=== PATIENT | male | born 1965 | race Caucasian/White ===

== ENCOUNTER 2021-11-24 09:58 | Outpatient (CLI) | payer OTHER, SELFPAY ==
--- OUTSIDE RECORDS SUMMARY | 2021-11-24 10:05 | XMS_ITS | Clinical Summary ---
:1965 Author Organization [employer] [facility] [facility] [place] [address] Care Team Providers Name Role Phone Marcel Hammonds MD Primary Care Provider Allergies No known active allergies Medications No known medications Active Problems Problem Noted Date Tinnitus 10/13/2015 Sensorineural hearing loss, bilateral 10/13/2015 Displacement of lumbar intervertebral disc without mye lopathy 03/13/2007 Degeneration of lumbar or lumbosacral intervertebral d isc 03/13/2007 VIRAL HEPATITIS C CHRONIC Overview: treatment completed, virus cleared Resolved Problems Problem Noted Date Resolved Date Weight loss 01/27/2013 03/03/2014 Encounters Date Type Specialty Care Team Description 11/24/2021 Office Visit Sean Palafox MD Consult from Last 3 Months Immunizations Name Administration Dates Next Due Influenza A (H1N1), Inactivated (Age 0103/28/2009 >=3 Years) Influenza, IIV3 (Age >=3 years) 01/26/2015, 01/27/2014, 03/2012, 12/24/2008 Tdap 05/24/2018, 05/15/2012 Tuberculin (PPD) 02/23/2013 Family History Medical History Relation Name Comments Heart Disease Brother 2 Alex valv replacement Arthritis Father Cancer-prostate Father and bladder Hypertension Father Arthritis Mother Heart Disease Mother CHF Hypertension Mother Stroke Mother Relation Name Status Comments Brother 1 Alive Brother 2 Alex Father Alive Maternal Grandfather Maternal Grandmother Mother (Age 71) Paternal Grandfather Paternal Grandmother Sister Alive Social History Tobacco Use Types Packs/Day Years Used Date Former Smoker Quit: 11/28/19 04 Smokeless Tobacco: Never Used Tobacco Cessation: Counseling Given: Yes Alcohol Use Standard Drinks/Week Comments No 0 (1 standard drink = 0.6 oz pure alcoho l) Sex Assigned at Date Recorded Not on file Obstetrics History Last Filed Vital Signs Vital Sign Reading Time Taken Comments Blood Pressure 100/58 11/24/2021 10:00 AM CDT Pulse 56 11/24/2021 10:00 AM CDT Temperature 36.4 ??C (97.6 ??F) 01/16/2021 11:10 AM CDT Respiratory Rate 14 11/24/2021 10:00 AM CDT Oxygen Saturation 96% 01/16/2021 11:10 AM CDT Inhaled Oxygen Concentration - - Weight 85.5 kg (188 lb 6.4 oz) 07/06/2020 1:51 PM CDT Height 190.5 cm (6' 3) 11/24/2021 10:00 AM CDT Body Mass Index 23.55 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 Plan of Treatment Health Maintenance Due Date Last Done Comments Zoster (shingles) series for age 0508/11/2014 50+ (1 of 2) BMI (ht and wt on same day) for 09/06/2016 09/07/2015 age 18+ Depression screening for age 12+ 09/06/2016 09/07/2015 Fecal testing non-DNA 02/28/2017 02/29/2016, 01/16/2015 (FIT,FOBT,iFOBT) for age 45-75 Lipids for age 45-75 09/06/2020 09/07/2015, 05/15/2012, 04/25/2006 Influenza for age 50-64 11/23/2021 01/26/2015, 01/27/2014, 11/23/2012, Additional history exists COVID-19 vaccine series (4 - 02/23/2022 10/24/2021, 021, Booster for Pfizer series) 06/11/2020 Tetanus booster 05/24/2028 05/24/2018, 05/15/2012 Hepatitis C screening for age Completed 10/18/2015, 2012, 18-79 01/27/2013, Additional history exists Tdap Completed 05/24/2018, 05/15/2012 Results Not on filefrom Last 3 Months Insurance Payer Benefit Plan / Subscriber ID Effective Dates Phone Addre ss Type Group WC WORKERS COMP WC WESTERN [id number] 2005-Presen C/O [place] [employer] [address] [place] [address] WC WORKERS COMP WC WESTERN [id number] 2004-Presen C/O [place] [employer] [address] [place] [address] WC WORKERS COMP WC WESTERN [id number] 2004-Prese C/O M [employer]LL [employer] [address] [place] [address] [employer] [place] [id number] 2010-Presen [address] [place] [address] [employer] [id number] 2018-Present [address] [place] [address] [phone] [address] (Home) COURT [phone] [place] [address] (Work) [id number] Derek Parikh Personal/Famil Self 1965 [phone] [address] (Home) COURT [place] [id number] Derek Parikh Workers Comp Self 1965 [phone] (Home) [place] [phone] 1 (Work) Derek Parikh Workers Comp Self 1965 [phone] (Home) [place] [phone] Derek Parikh Workers Comp Self 1965 [phone] [address] (Home) [address] [place] [address] [facility] Occ Employer 03/25/1900 [phone] ATTN CR [employer] [facility] (Home) [address] [phone] [facility] [address] (Work) [place] [address] Care Teams Ed Educational Aide Relationship Specialty Start Date End Date Marcel Hammonds MD PCP - General Family Practice 05/23/211999 [place] [address]
[2021-11-24 11:43] LABS: Creatinine* 0.9 mg/dL (0.5-1.5); Estimated Glomerular Filt Rate 100 ml/min
== END 2021-11-24 09:59 | disposition home or self-care (01) ==
LOC: NFLDREF 10:04
PROVIDERS: PCP Family Medicine; Visit Provider Internal Medicine Cardiovascular Disease
DX: I77.810 Thoracic aortic ectasia (principal)
CPT/HCPCS: 82565

== ENCOUNTER 2021-12-01 08:39 | Outpatient (CLI) | payer OTHER, SELFPAY ==
--- OUTSIDE RECORDS SUMMARY | 2021-12-01 08:46 | XMS_ITS | Clinical Summary ---
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 Health Maintenance Due Date [...] Type Group WC WORKERS COMP WC WESTERN [id number] 2005-Presen C/O M ITCHELL [employer] [address] [place] [address] WC WORKERS COMP WC WESTERN [id number] 2004-Presen C/O [place] [employer]ENCE [employer] [address] [place] [address] WC WORKERS COMP WC WESTERN [id number] 2004-Prese C/O M ITCHELL [employer] [address] [place] [address] [employer] [id number] 2010-Presen [address] [place] [address] [employer] [id number] 2018-Present [address] [place] [address] [phone] [address] (Home) COURT [phone] [place] [address] (Work) [phone] Derek Parikh Personal/Famil Self 1965 [phone] [address] (Home) COURT [place] [id number] Derek Parikh Workers Comp Self 1965 [phone] (Home) [place] [phone] 1 (Work) Derek Parikh Workers Comp Self 1965 [phone] (Home) [place] [address] Derek Parikh Workers Comp Self 1965 [phone] [address] (Home) [address] [place] [address] [facility] Occ Employer 03/25/1900 [phone] ATTN [employer] Health/Alex 7 (Home) [address] [phone] [facility] [address] (Work) [place] [address] Care Teams Medical Professionals Relationship Specialty Start Date End Date Marcel Hammonds MD PCP - General Family Practice 05/23/211999 [place] [address]
--- NOTE | 2021-12-01 09:00 | CRLHL7_ITS ---
For Patients: As a result of the Century Cures Act, medical imaging exams and procedure reports are released immediately into your electronic medical record. You may view this report before your referring provider. If you have questions, please contact your health care provider. Indication: Enlarged aortic root Technique: Post contrast CT chest. 75 cc Isovue 370 intravenous contrast. Please note that all CT scans at this facility use dose modulation, iterative reconstruction, and/or weight-based dosing when appropriate to reduce radiation dose to as low as reasonably achievable. Comparison: None Findings: Ascending aorta measures 4.0 x 3.8 cm. No dissection is present. Mild atherosclerotic disease. Upper abdomen normal. Normal pulmonary artery. No pulmonary embolism. No adenopathy. Chronic left posterior rib fracture deformities at the inferior hemithorax. No acute fracture. Degenerative changes thoracic spine. Impression: The ascending aorta measures 4.0 x 3.8 cm. Please note that all CT scans at this facility use dose modulation, iterative reconstruction, and/or weight-based dosing when appropriate to reduce radiation dose to as low as reasonably achievable. Dictated by Sean Louie MD @ 12/01/2021 1:33:38 PM (Electronically Signed)
== END 2021-12-01 08:40 | disposition home or self-care (01) ==
LOC: CT 08:39
PROVIDERS: PCP Family Medicine; Visit Provider Internal Medicine Cardiovascular Disease
DX: I77.810 Thoracic aortic ectasia (principal)
CPT/HCPCS: 71260; Q9967

== ENCOUNTER 2022-11-28 11:14 | Outpatient (CLI) | payer OTHER, SELFPAY | END 2022-11-28 11:15 | disposition home or self-care (01) | LOC: NFLDREF 11-30 06:41 | PROVIDERS: PCP Family Medicine; Referring Provider Family Medicine; Visit Provider Family Medicine | DX: Z00.00 Encounter for general adult medical examination without abnormal findings (principal); E78.5 Hyperlipidemia, unspecified; R73.03 Prediabetes; Z12.5 Encounter for screening for malignant neoplasm of prostate | CPT/HCPCS: 80053; 80061; 84153 ==

== ENCOUNTER 2023-10-13 09:11 | Emergency (ER) | payer OTHER, SELFPAY ==
[2023-10-13 09:14] VITALS: BP 138/86; PULSE 64; RESP 16; TEMP 36.2; O2SAT 97; BMI 23.7
[2023-10-13 09:28] LABS: Appearance Urine Slightly Cloudy (Clear); Bilirubin Urine Negative (Negative); Blood Urine 3+ (Negative); Color Urine Amber (Yellow); Glucose Urine Negative (Negative); Ketones Urine Negative (Negative); Leukocyte Esterase Urine Negative (Negative); Nitrite Urine Negative (Negative); Protein Urine 1+ (Negative); Specific Gravity Urine 1.015 (1.000-1.030); Urobilinogen Urine 0.2 (0.2-1.0); pH Urine 6.5 (5.0-8.5)
--- NOTE | 2023-10-13 09:33 | ED.MALEGU ---
HPI - Male Genitourinary General Date Seen: 10/13/23 Chief complaint: Urogenital Problems, Male Stated complaint: blood in urine Time Seen by Provider: 10/13/23 09:20 Source: patient, family and RN notes reviewed Mode of arrival: ambulatory Limitations: no limitations History of Present Illness HPI Narrative: Derek is a very pleasant 58-year-old gentleman with history of aortic root dilatation benign positional vertigo who comes to the emergency room for evaluation of hematuria. Patient notes that he started experiencing blood in his urine today. He is describing this as clots. He really does not have any other symptoms to include nausea or fever. He does note that his abdominal muscles feel as if he has been doing sit-ups but does not describe any discrete pain. This has not happened to him in the past. Denies a history of urinary tract infection, difficulty urinating. He is not currently on any blood thinners. He is not feeling lightheaded. No other symptoms. 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 He notes that he was throwing some luggage but does not remember a moment where he felt pain. Denies any trauma. Related Data Home Medications ?Medication ?Instructions ?Recorded ?Confirmed No Known Home Medications 10/13/23 10/13/23 Allergies Allergy/AdvReac Type Severity Reaction Status Date / Time No Known Allergies Allergy Unknown Verified 10/13/23 10:57 Review of Systems Status of ROS: Reports: 10 or more systems reviewed and unremarkable except as noted in History and below Const: Denies: fever or chills Cardio: Denies: swelling of feet/ankles, lightheadedness or shortness of breath with exertion Resp: Denies: shortness of breath GI: Denies: abdominal pain, nausea or vomiting : Reports: blood in urine; Denies: painful urination, urinary frequency or urinary urgency Musculo: Denies: back pain [facility] Medical History History of hepatitis C virus infection ?Z86.19 - Personal history of other infectious and parasitic diseases (ICD-10) Surgical History Status post myringotomy with tube placement of both ears ?Z96.22 - Myringotomy tube(s) status (ICD-10) History of tonsillectomy ?Z90.89 - Acquired absence of other organs (ICD-10) History of hand surgery ?Z98.890 - Other specified postprocedural states (ICD-10) History of adenoidectomy ?Z90.89 - Acquired absence of other organs (ICD-10) Social History What is your current living situation?: unable to answer Problems where you live: unable to answer In the past 12 months, utilities in danger of being shut off: no In past 12 months, lack of transportation kept you from medical appts, meetings, work, or getting things needed for daily living: no In the past 12 mos, have been you worried that your food would run out before you had money to buy more?: never true In the past 12 mos, the food you bought just didn't last and you didn't have money to buy more?: never true Smoking Status: Former smoker How often do you have a drink containing alcohol: never How often do you have six or more drinks on one occasion: Never AUDIT-C Alcohol total score: 0 Non-prescribed substance use: denies use How often does anyone, including family, friends and others, physically hurt you: never How often does anyone, including family, friends and others, insult or talk down to you: never How often does anyone, including family, friends and others, threaten you with harm: never How often does anyone, including family, friends and others, scream or curse at you: never Little interest or pleasure in doing things: not at all Feeling down, depressed, or hopeless: not at all Exam Narrative: Exam Narrative: Derek is alert and oriented. Normal color and appearance. Does have hearing impairment but we are able to converse without difficulty. EOM is full in face is symmetrical. Heart with regular rate and rhythm and lungs are clear. Abdomen is soft nontender. No CVA tenderness with percussion. Moving all extremities. Const: Vital Signs, click to edit/add: Vital Signs - 24 hr 10/13/23 09:14 10/13/23 11:35 Temperature 97.2 F L Pulse Rate [Pulse Oximeter] 64 50 L Respiratory Rate 16 16 Blood Pressure [Ri ght Upper Arm] 138/86 139/80 Pulse Oximetry 97 98 Oxygen Delivery Me thod Room Air Room Air Documenting provider has reviewed patient's vital signs: yes Course Course ED Course: Differential diagnosis includes but is not limited to urinary tract infection, pyelonephritis, kidney stone, urinary system lesion. Will schedule bladder scan after collection of urinalysis. Will check labs to include CBC, basic panel INR. Reevaluation(s) Reevaluation #1: Patient is informed that he does have a bladder mass. This is most likely carcinoma. Fortunately CT does not show any other signs of metastases. Attempting to her contact urologist at this time. Consultations Consultation #1: I had the pleasure of speaking with from [facility] at [place]. At this time he does request that the patient call the office for expedited appointment and tumor removal. Vital Signs Vital signs: Initial Vital Signs Temperature 97.2 F L 10/13/23 09:14 Temperature Source Temporal Artery Scan 10/13/23 09:14 Pulse Rate 64 10/13/23 09:14 Respiratory Rate 16 10/13/23 09:14 Blood Pressure 138/86 10/13/23 09:14 Blood Pressure Mean 103 10/13/23 09:14 Blood Pressure Position Sitting 10/13/23 09:14 Pulse Oximetry 97 10/13/23 09:14 Oxygen Delivery Method Room Air 10/13/23 09:14 Vital Signs Temperature 97.2 F L 10/13/23 09:14 Pulse Rate 64 10/13/23 09:14 Respiratory Rate 16 10/13/23 09:14 Blood Pressure 138/86 10/13/23 09:14 Pulse Oximetry 97 10/13/23 09:14 Oxygen Delivery Method Room Air 10/13/23 09:14 Temperature 97.2 F L 10/13/23 09:14 Pulse Rate 50 L 10/13/23 11:35 Respiratory Rate 16 10/13/23 11:35 Blood Pressure 139/80 10/13/23 11:35 Pulse Oximetry 98 10/13/23 11:35 Oxygen Delivery Method Room Air 10/13/23 11:35 MDM - Male Genitourinary MDM Narrative Medical decision making narrative: 1. Bladder mass-patient with a 3.6 x 4.6 bladder mass associated with gross hematuria. Remote history of tobacco use. No recent weight loss. Hemoglobin normal at 13.7. No evidence of underlying UTI. Spoke with urologist to gives the phone number to [facility] for expedited appointment. [phone]. Patient is told to maintain good hydration to keep his urine dilute. He is to return for fever chills or difficulty with urination. Postvoid residual 49 males today. 2. Right lower lung mass- Incidental nonspecific morphologically benign 4 mm right lower lobe patient nodular opacity. Attention on follow-up is recommended. Will need to follow-up with primary MD for repeat scan although evaluation of this what appears to be a benign mass will likely occur her in his setting of evaluation for bladder cancer. Remote history of tobacco use. 3. Disposition-home at this time. Recommended to call the phone number provided for [facility] tomorrow. Recommended taking 1st appointment available at any of their clinics. A copy of the CT and printout of CT results will be provided. Medical Records Attestation: I reviewed the patient's medical records. Lab Data Attestation: I reviewed the patient's lab results. Labs: Lab Results 10/13/23 10/13/23 Range/Units 09:23 09:48 WBC 5.35 (4.50-11.00) K/uL RBC 4.57 (4.30-5.90) m/uL Hgb 13.7 (13.5-17.5) gm/dL Hct 40.3 (37.0-53.0) % MCV 88 (80-100) fL MCH 30 (26-34) pg MCHC 34 (32-36) gm/dL RDW Coeff of Juan 11.8 (11.5-15.5) % Plt Count 188 (140-440) K/uL Neut % (Auto) 60.9 (42.0-72.0) % Lymph % (Auto) 27.9 (20-44) % [place] % (Auto) 5.0 (0.0-11.0) % Eos % (Auto) 5.8 (0.0-7.0) % Baso % (Auto) 0.4 (0.0-3.0) % Neut # (Auto) 3.26 (1.7-7.0) K/uL Lymph # (Auto) 1.49 (0.90-2.90) K/uL [place] # (Auto) 0.30 (0.00-0.90) K/UL Eos # (Auto) 0.31 (0.00-0.50) K/uL Baso # (Auto) 0.02 (0.00-0.30) K/uL Abs Immat Gran (auto) 0.00 (0.00-0.30) K/uL Imm/Tot Granulo (auto) 0.0 % INR 0.91 (0.91-1.10) Sodium 139 (135-149) mmol/L Potassium 4.1 (3.6-5.1) mmol/L Chloride 108 (96-114) mmol/L Carbon Dioxide 26 (20-32) mmol/L Anion Gap 5 L (7-15) mEq/L BUN 14 (7-30) mg/dL Creatinine 0.8 (0.5-1.5) mg/dL Estimated Creat Clear 118.83 Estimated GFR 102 ml/min Glucose 115 (60-115) mg/dL Calcium 9.5 (8.4-10.6) mg/dL C-Reactive Protein < 0.5 L (0.5-1.0) mg/dL Urine Color Sanjana A (Yellow) Urine Appearance Slightly Cloudy A (Clear) Urine pH 6.5 (5.0-8.5) Ur Specific [place] 1.015 (1.000-1.030) Urine Protein 1+ A (Negative) Urine Glucose (UA) Negative (Negative) Urine Ketones Negative (Negative) Urine Blood 3+ A (Negative) Urine Nitrite Negative (Negative) Urine Bilirubin Negative (Negative) Urine Urobilinogen 0.2 (0.2-1.0) Ur Leukocyte Esterase Negative (Negative) Urine RBC >100 A (0-2) Urine WBC 2-5 (0-5) Ur Squamous Epith Cells Few (None-Few) Urine Bacteria Few A (None) Imaging Data CT scan - abdomen: Attestation: I have reviewed the pertinent imaging results. My impression: By my read there appears to be a large mass in the bladder. Radiologist's impression: Kidneys and Upper Urinary Tracts: Normal bilateral renal attenuation. No suspicious focal lesion. No obstructing nephrolith or dilatation of the intrarenal collecting systems. Patent renal arteries and veins. Nondilated upper urinary tracts. No filling defect in the opacified upper urinary tracts. Liver: Normal hepatic attenuation. No suspicious focal hepatic lesion. No intrahepatic biliary ductal dilatation. Patent portal and hepatic veins. Gallbladder: Normal gallbladder size. Normal common duct caliber. No pericholecystic inflammatory changes. Pancreas: Normal pancreatic attenuation. No focal lesion. Normal duct caliber. No peripancreatic inflammatory changes. Spleen: Normal splenic attenuation. No suspicious focal lesion. Patent splenic artery and vein. Adrenal Glands: Symmetrical adrenal glands. No focal lesion of significance. Gastrointestinal tract: Normal caliber, attenuation and wall thickness of the gastrointestinal tract. No inflammatory changes. Normal mesentery. Normal appendix. Vascular: Abdominal aorta and its major proximal branches including the celiac, superior mesenteric, inferior mesenteric, renal, and bilateral common iliac arteries are patent. Inferior vena cava, portal and superior mesenteric veins are patent. Additional findings: No incidental adenopathy. No significant ascites, free fluid or pneumoperitoneum. PELVIS 3.6 x 4.6 cm (5; 27) intraluminal left posterolateral bladder mass associated with a punctate medial peripheral calcification (2; 126). The epicenter of this lesion is anterior and superior to the left ureterovesical junction. This finding is considered to represent a urothelial carcinoma until proven otherwise. Urology referral is recommended for further management. No significant incidental findings related to the prostate and seminal vesicles. No abnormal free fluid. No incidental adenopathy. SKELETON AND BODY WALL No acute or suspicious incidental findings. Fat containing umbilical hernia. LOWER THORAX Incidental 4 mm peripheral right lower lobe nodular opacity with straight and scalloped margins (6; 4 and 7; 153). Inferior lingula segment pleural-based band opacity consistent with nonspecific fibrosis. IMPRESSION: 1. 3.6 x 4.6 cm (5; 27) intraluminal left posterolateral bladder mass associated with a punctate medial peripheral calcification (2; 126). The epicenter of this lesion is anterior and superior to the left ureterovesical junction. This finding is considered to represent a urothelial carcinoma until proven otherwise. Urology referral is recommended for further management. 2. Incidental nonspecific morphologically benign 4 mm right lower lobe nodular opacity. Attention on follow-up is recommended. 3. No other findings suspicious for regional or distant metastatic disease. Discharge Plan Discharge Clinical Impression: Mass of bladder, Mass of left lung Hematuria Qualifiers: Hematuria type: gross Qualified Code(s): R31.0 - Gross hematuria Patient Disposition: Home, Self-Care Condition: Unchanged Additional Instructions: 1. There is a mass in your bladder measuring 3.6 x 4.6 cm. I spoke with Dr. Rashad Fernandez urologist. He is going to put a note in the chart about you calling for an appointment. They do service the [facility] but he states that it is very hard to be seen there and most likely you will need to go to the [facility]. Please call the following number tomorrow morning for an appointment: [phone]. Try to stay well hydrated. Return to the emergency room if you are unable to urinate. 2. There is a small mass in the lower part of your right lung. However, this looks to be benign or noncancerous. There is a suggestion for follow-up with this with your regular doctor. A copy of your CT will be sent with you upon discharge. 3. Return to the emergency room for fever, vomiting, worsening symptoms and as needed. Prescriptions: No Action No Known Home Medications Follow Up/Referrals: Marcel Hammonds MD [Primary Care Provider] - Stand Alone Forms: Path Info Instructions
--- OUTSIDE RECORDS SUMMARY | 2023-10-13 09:35 | XMS_ITS | Clinical Summary ---
Author Organization [facility] Address [place], [place] [address] Care Team Providers Care Bottoming Room Supervisor Name Role Phone Marcel Hammonds MD Primary Care Provider [phone] Allergies No known active allergies Medications No known medications Active Problems Problem Noted Date Diagnosed Date Tinnitus 10/13/2015 Sensorineural hearing loss, bilateral 10/13/2015 Displacement of lumbar inter vertebral disc without myelopathy 03/13/2007 Degeneration of lumbar or lumbosacral interverte bral disc 03/13/2007 VIRAL HEPATITIS C CHRONIC Overview: treatment completed, virus cleared Resolved Problems Problem Noted Date Diagnosed Date Resolved Date Weight loss 01/27/2013 03/03/2014 Immunizations Name Administration Dates Next Due Influenza A (H1N1), Inactiva batsheva (Age >=3 Years) 03/28/2009 Influenza, IIV3 (Age >=3 years) 01/27/20 15,01/27/2014,11/23/2012,2008 Tdap 05/24/2018,05/15/2012 Tuberculin (PPD) 02/23/2013 Family History Medical History Relation Name Comments Heart Disease Brother 2 Alex valv replaceme nt Arthritis Father Cancer-prostate Father and bladder Hypertension Father Arthritis Mother Heart Disease Mother CHF Hypertension Mother Stroke Mother Relation Name Status Comments Brother 1 Alive Brother 2 Alex Father Alive Maternal Grandfather Maternal Grandmother Mother (Age 71) Paternal Grandfather Paternal Grandmother Sister Alive Social History Tobacco Use Types Packs/Day Years Used Date Smoking Tobacco: Former Cigarettes Q uit: 11/28/2003 Smokeless Tobacco: Never Tobacco Cessation:Counseling Given: Yes Alcohol Use Standard Drinks/Week Comments No 0 (1 standard drink = 0.6 oz pur e alcohol) Social Connections Answer Date Recorded Frequency of Communication with Friends and Fami ly Not on file 03/25/2021 Financial Resource Strain Answer Date R ecorded Difficulty of Paying Living Expenses Not on file 03/25/2021 Difficulty of Paying Living Expenses Not on file 03/25/2021 Sex and Gender Information Value Date Recorded Sex Assigned at Not on file Gender Identity Not on file Sexual Orientation Not on file Obstetrics History Last Filed Vital Signs Vital Sign Reading Time Taken Comments Blood Pressure 100/58 11/24/2021 10:00 AM CDT Pulse 56 11/24/2021 10:00 AM CDT Temperature 36.4 ??C (97.6 ??F) 01/16/2021 11:10 AM C DT Respiratory Rate 14 11/24/2021 10:00 AM CDT Oxygen Saturation 96% 01/16/2021 11:10 AM CDT Inhaled Oxygen Concentration - - Weight 85.5 kg (188 lb 6.4 oz) 07/06/2020 1:51 P M CDT Height 190.5 cm (6' 3) 11/24/2021 10:00 AM CDT Body Mass Index 23.55 05/24/2018 10:16 AM ORTHOPEDIC MECHANIC Plan of Treatment Health Maintenance Due Date Last Done Comments Zoster (shingles) series for age 50+ (1 of 2) 2014 BMI (ht and wt on same day) for age 18+ 09/06/2016 09/07/2015 Depression screening for age 12+ 09/06/2016 09/07/2015 Fecal testing non-DNA (FIT,FOBT,iFOBT) for age 45-75 02/28/2017 02/29/2016, 01/16/2015 Lipids for age 45-75 09/06/2020 09/07/2015, 05/15/2012, 04/25/2006 COVID-19 vaccine series ( season) 2022 10/24/2021, 02/17/2021, 06/11/2020 Influenza for age 50-64 11/24/2023 01/27/20 15, 01/27/2014, 11/23/2012, Additional history exists Tetanus booster 05/24/2028 05/24/2018, 05/15/2012 HIV for age 15-65 Completed 12/14/2013, , 02/27/2013, Additional history exists Hepatitis C screening for age 18-79 Completed 10/18/2015, 01/27/2013, 01/27/2013, Additional history exists Tdap Completed 05/24/2018, 05/15/2012 Pneumococcal series for age 6-64 Aged Out No longer eligible based on patient's age to complete this topic Procedures Procedure Name Priority Date/Time Associated Diagnosis Comments OCCULT BLOOD IFOBT STOOL Routine 02/29/2016 1:30 PM ORTHOPEDIC MECHANIC Screening for colorectal cancer HCV RNA QUANT Routine 10/18/2015 9:06 AM CDT Chronic hepatitis C without hepatic coma (HC) LIPID PANEL W REFLEX MEASURED LDL Routine 09/07/2015 8:39 AM CDT Annual physical exam ANTI HIV 1/2 Routine 12/14/2013 2:48 PM CDT Screening for STD (sexually transmitted disease) from Last 3 Months or Most Recently Relevant to Health Maintenance Results * OCCULT BLOOD IFOBT STOOL (02/29/2016 1:30 PM ORTHOPEDIC MECHANIC) STOOL BLOOD ,IFOBT Negative Negative 03/02/2016 11:48 AM ORTHOPEDIC MECHANIC [facility] Stool STOOL SPECIMEN / Unknown Non-Blood / Unknown 02/29/2016 1:30 PM ORTHOPEDIC MECHANIC 03/01/2016 1:30 PM ORTHOPEDIC MECHANIC Yakelin Shields MD LABORATORY [facility] [address] [place] [address], * HCV RNA QUANT (10/18/2015 9:06 AM CDT) HCV RNA RT-PCR HCV RNA not detected HCV RNA not detected IU/mL 10/20/2015 2:37 PM CDT [facility] Blood BLOOD SPECIMEN / Unknown Venipuncture / Unknown 10/18/2015 9:06 AM CDT 10/18/2015 9:06 AM CDT [facility]ative [facility] - 10/20/2015 2:37 PM CDT Method: ??Shen HCV Test Yakelin Shields MD SEND OUTS [facility] [address] [place] [address], [place] * LIPID PANEL W REFLEX MEASURED LDL (09/07/2015 8:39 AM CDT) CHOLESTEROL,TOTAL 165 100 - 199 mg/dL 09/07/2015 10:10 AM CDT [facility] TRIGLYCERIDES 51 <150 mg/dL 09/07/2015 10:10 AM CDT [facility] HDL CHOLESTEROL 45 >40 mg/dL 09/07/2015 10:10 AM CDT [facility] NON-HDL CHOLESTEROL 120 <145 mg/dl 09/07/2015 10:10 AM CDT [facility] CHOL/HDL RATIO 3.67 <4.50 09/07/2015 10:10 AM CDT [facility] LDL CHOLESTEROL 110 <=130 mg/dL 09/07/2015 10:10 AM CDT [facility] PATIENT STATUS FASTING 09/07/2015 10:10 AM CDT [facility] Blood specimen (specimen) BLOOD SPECIMEN / Unknown Venipuncture / Unknown 09/07/2015 8:39 AM CDT 09/07/2015 8:40 AM CDT Yakelin Shields MD CHEMISTRY [facility] [address] [place] [address], * ANTI HIV 1/2 (12/14/2013 2:48 PM CDT) HIV-1/HIV-2 ANTIBODY Non-Reacti ve Non-Reacti ve 12/14/2013 10:53 PM CDT [facility] TR[facility] LABORATORY Blood specimen (specimen) BLOOD SPECIMEN / Unknown Venipuncture / Unknown 12/14/2013 2:48 PM CDT 12/14/2013 2:48 PM CDT Narrative [facility] - 12/14/2013 10:53 PM CDT HIV-1 p24 and HIV-1/HIV-2 Ab not detected Yakelin Shields MD SEND OUTS [facility] [address] [place] [address], from Last 3 Months or Most Recently Relevant to Health Maintenance Care Teams Bottoming Room Supervisor Relationship Specialty Start Date End Date Marcel Hammonds MD [address] [place] [address] PCP - General Family Practice 05/23/21
--- OUTSIDE RECORDS SUMMARY | 2023-10-13 09:35 | XMS_ITS | Clinical Summary ---
Author Organization [facility] Address [address] [place] [address] Care Team Providers Care Plow Shaker Name Role Phone No Ref-Primary, Physician Primary Care Provider Thang Conner MD Unavailable [phone] Allergies No known active allergies Medications No known medications Social History Tobacco Use Types Packs/Day Years Used Date Smoking Tobacco: Never Assessed PHQ-2 Answer Date Recorded PHQ-2 Score 0 05/04/2022 Adolescent Education Answer Date Record ed Getting School Help Needed Not on file 12/31 Sex and Gender Information Value Date Recorded Sex Assigned at Not on file Gender Identity Not on file Sexual Orientation Not on file Last Filed Vital Signs Vital Sign Reading Time Taken Comments Blood Pressure 136/87 05/04/2022 9:46 AM CUSTOMER SERVICE CASHIER Pulse 57 05/04/2022 9:46 AM CUSTOMER SERVICE CASHIER Temperature 37 ??C (98.6 ??F) 05/04/2022 9:46 AM CUSTOMER SERVICE CASHIER Respiratory Rate - - Oxygen Saturation 100% 05/04/2022 9:46 AM CUSTOMER SERVICE CASHIER Inhaled Oxygen Concentration - - Weight 86.2 kg (190 lb) 05/04/2022 9:46 AM CUSTOMER SERVICE CASHIER Height 190.5 cm (6' 3) 05/04/2022 9:46 AM CUSTOMER SERVICE CASHIER Body Mass Index 23.75 05/04/2022 9:46 AM CUSTOMER SERVICE CASHIER Plan of Treatment Health Maintenance Due Date Last Done Comments ADVANCE CARE PLANNING 1965 ANNUAL REVIEW OF HM ORDERS 1964 CT COLONOGRAPHY 1964 FIT 1964 FLEX SIG 1964 GLUCOSE 1964 YEARLY PREVENTIVE VISIT 1964 sDNA (Cologuard) 1964 COLONOSCOPY 1974 COLORECTAL CANCER SCREENING 1974 HIV SCREENING 08/12/1979 HEPATITIS C SCREENING 1982 HEPATITIS B IMMUNIZATION (1 of 3 - 19+ 3-dose series) 08/12/1983 LIPID 2004 COVID-19 Vaccine (2022- season) 2022 02/05/2022, 10/24/2021, 02/17/2021, Additional history exists PHQ-2 (once per calendar year) 2023 05/04/2022 INFLUENZA VACCINE (#1) 2023 2, 01/08/2021, 01/08/2020, Additional history exists DTAP/TDAP/TD IMMUNIZATION (4 - Td or Tdap) 05/24/2028 05/24/2018, 04/25/2018, 05/15/2012 ZOSTER IMMUNIZATION Completed 07/18/2020, 1 HPV IMMUNIZATION Aged Out No longer e ligible based on patient's age to complete this topic IPV IMMUNIZATION Aged Out No longer e ligible based on patient's age to complete this topic MENINGITIS IMMUNIZATION Aged Out No l onger eligible based on patient's age to complete this topic Pneumococcal Vaccine: Pediatrics (0 to 5 Years) and At-Risk Patients (6 to 64 Years) Aged Out No longer eligible based on patient's age to complete this topic RSV MONOCLONAL ANTIBODY Aged Out No l onger eligible based on patient's age to complete this topic Care Teams Plow Shaker Relationship Specialty Start Date End Date No Ref-Primary, Physician PCP - General 03/22/22 Thang Conner MD [address] [place] [address] Otolaryngology 03/22/22
--- OUTSIDE RECORDS SUMMARY | 2023-10-13 09:35 | XMS_ITS | Encounter Summary ---
Author Organization [facility] Address [address] [place] [address] Care Team Providers Care Scientific Photographer Name Role Phone No Ref-Primary, Physician Primary Care Provider Thang Conner MD Unavailable [phone] Thang Conner MD Unavailable [phone] Encounter Details Date Type Department Care Team (Late st Contact Info) Description 02/26/2019 External Order Results [facility] [address] [place] [address] Nurse, [facility] Social History Tobacco Use Types Packs/Day Years Used Date Smoking Tobacco: Never Assessed Sex and Gender Information Value Date Recorded Sex Assigned at Not on file Gender Identity Not on file Sexual Orientation Not on file documented as of this encounter Plan of Treatment Not on file documented as of this encounter Visit Diagnoses Not on filedocumented in this encounter Care Teams Scientific Photographer Relationship Specialty Start Date End Date No Ref-Primary, Physician PCP - General 03/22/22 Thang Conner MD [address] [place] [id number] Otolaryngology 03/22/22 Thang Conner MD [address] [place] [id number] Assigned Surgical Provider 05/12/2203/17 documented as of this encounter
--- OUTSIDE RECORDS SUMMARY | 2023-10-13 09:35 | XMS_ITS | Encounter Summary ---
Author Organization [facility] Address [address] [place] [address] Care Team Providers Care Engravings Polisher Name Role Phone No Ref-Primary, Physician Primary Care Provider Thang Conner MD Unavailable [phone] Thang Conner MD Unavailable [phone] Encounter Details Date Type Department Care Team (Late st Contact Info) Description 05/05/2022 [facility] [facility] [address] [address] Thang Conner MD [address] [place] [address] [id number] Social History Tobacco Use Types Packs/Day Years Used Date Smoking Tobacco: Never Assessed PHQ-2 Answer Date Recorded PHQ-2 Score 0 05/04/2022 Sex and Gender Information Value Date Recorded Sex Assigned at Not on file Gender Identity Not on file Sexual Orientation Not on file COVID-19 Exposure Response Date Recorded In the last 10 days, have yo u been in contact with someone who was confirmed or suspected to have Coronavirus/COVID-19? No / Unsure 05/04/2022 9:37 AM MULTIPLE PUNCH PRESS OPERATOR documented as of this encounter Plan of Treatment Not on file documented as of this encounter Visit Diagnoses Not on filedocumented in this encounter Care Teams Engravings Polisher Relationship Specialty Start Date End Date No Ref-Primary, Physician PCP - General 03/22/22 Thang Conner MD [address] [place], [place] [phone] Otolaryngology 03/22/22 Thang Conner MD [address] [place], [place] [id number] Assigned Surgical Provider 05/12/2203/17 documented as of this encounter
--- OUTSIDE RECORDS SUMMARY | 2023-10-13 09:35 | XMS_ITS | Referral Summary ---
Author Organization [facility] Address [address] [place] [address] Care Team Providers Care Reweaver Name Role Phone No Ref-Primary, Physician Primary Care Provider Thang Conner MD Unavailable [phone] Allergies No known active allergies Medications No [...] Comments Blood Pressure 136/87 05/04/2022 9:46 AM DESK LIEUTENANT Pulse 57 05/04/2022 9:46 AM DESK LIEUTENANT Temperature 37 ??C (98.6 ??F) 05/04/2022 9:46 AM DESK LIEUTENANT Respiratory Rate - - Oxygen Saturation 100% 05/04/2022 9:46 AM DESK LIEUTENANT Inhaled Oxygen Concentration - - Weight 86.2 kg (190 lb) 05/04/2022 9:46 AM DESK LIEUTENANT Height 190.5 cm (6' 3) 05/04/2022 9:46 AM DESK LIEUTENANT Body Mass Index 23.75 05/04/2022 9:46 AM DESK LIEUTENANT Plan of Treatment Not on file Care Teams Reweaver Relationship Specialty Start Date End Date No Ref-Primary, Physician PCP - General 03/22/22 Thang Conner MD [address] [place] [address] Otolaryngology 03/22/22
[2023-10-13 09:46] LABS: Bacteria Urine Few; RBC Urine >100 (0-2); Squamous Epithelial Cell Urine Few (None-Few)
[2023-10-13 09:55] LABS: Basophils Absolute Auto 0.02 K/uL (0.00-0.30); Basophils Percent Auto 0.4 % (0.0-3.0); Eosinophils Absolute Auto 0.31 K/uL (0.00-0.50); Eosinophils Percent Auto 5.8 % (0.0-7.0); Hematocrit 40.3 % (37.0-53.0); Hemoglobin* 13.7 gm/dL (13.5-17.5); Lymphocytes Absolute Auto 1.49 K/uL (0.90-2.90); Lymphocytes Percent Auto 27.9 % (20-44); Mean Corpuscular HGB Conc 34 gm/dL (32-36); Mean Corpuscular Hemoglobin 30 pg (26-34); Mean Corpuscular Volume 88 fL (80-100); Neutrophils Absolute Auto 3.26 K/uL (1.7-7.0); Neutrophils Percent Auto 60.9 % (42.0-72.0); Platelet Count* 188 K/uL (140-440); RDW Coefficient of Variation % 11.8 % (11.5-15.5); Red Blood Count 4.57 m/uL (4.30-5.90); White Blood Count* 5.35 K/uL (4.50-11.00)
[2023-10-13 09:58] LABS: Slide Review Reflex No
[2023-10-13 10:24] LABS: Chloride* 108 mmol/L (96-114); Potassium* 4.1 mmol/L (3.6-5.1); Sodium* 139 mmol/L (135-149)
[2023-10-13 10:26] LABS: INR 0.91 (0.91-1.10); Prothrombin Time 12.7 Seconds
[2023-10-13 10:27] LABS: Anion Gap 5 mEq/L (7-15); Blood Urea Nitrogen* 14 mg/dL (7-30); Carbon Dioxide* 26 mmol/L (20-32); Creatinine* 0.8 mg/dL (0.5-1.5); Est. Creatinine Clearance* 118.83; Estimated Glomerular Filt Rate 102 ml/min
[2023-10-13 10:28] LABS: Calcium* 9.5 mg/dL (8.4-10.6); Glucose* 115 mg/dL (60-115)
[2023-10-13 10:31] LABS: C Reactive Protein* < 0.5 mg/dL (0.5-1.0)
--- NOTE | 2023-10-13 10:41 | CRLHL7_ITS ---
For Patients: As a result of the 21st Century Cures Act, medical imaging exams and procedure reports are released immediately into your electronic medical record. You may view this report before your referring provider. If you have questions, please contact your health care provider. INDICATION: Gross hematuria. COMPARISON: None available. TECHNIQUE: CT urography prior to and following intravenous administration of 100 cc of Omnipaque 350 intravenous contrast. Please note that all CT scans at this facility use dose modulation, iterative reconstruction, and/or weight-based dosing when appropriate to reduce radiation dose to as low as reasonably achievable. FINDINGS: ABDOMEN Kidneys and Upper Urinary Tracts: Normal bilateral renal attenuation. No suspicious focal lesion. No obstructing nephrolith or dilatation of the intrarenal collecting systems. Patent renal arteries and veins. Nondilated upper urinary tracts. No filling defect in the opacified upper urinary tracts. Liver: Normal hepatic attenuation. No suspicious focal hepatic lesion. No intrahepatic biliary ductal dilatation. Patent portal and hepatic veins. Gallbladder: Normal gallbladder size. Normal common duct caliber. No pericholecystic inflammatory changes. Pancreas: Normal pancreatic attenuation. No focal lesion. Normal duct caliber. No peripancreatic inflammatory changes. Spleen: Normal splenic attenuation. No suspicious focal lesion. Patent splenic artery and vein. Adrenal Glands: Symmetrical adrenal glands. No focal lesion of significance. Gastrointestinal tract: Normal caliber, attenuation and wall thickness of the gastrointestinal tract. No inflammatory changes. Normal mesentery. Normal appendix. Vascular: Abdominal aorta and its major proximal branches including the celiac, superior mesenteric, inferior mesenteric, renal, and bilateral common iliac arteries are patent. Inferior vena cava, portal and superior mesenteric veins are patent. Additional findings: No incidental adenopathy. No significant ascites, free fluid or pneumoperitoneum. PELVIS 3.6 x 4.6 cm (5; 27) intraluminal left posterolateral bladder mass associated with a punctate medial peripheral calcification (2; 126). The epicenter of this lesion is anterior and superior to the left ureterovesical junction. This finding is considered to represent a urothelial carcinoma until proven otherwise. Urology referral is recommended for further management. No significant incidental findings related to the prostate and seminal vesicles. No abnormal free fluid. No incidental adenopathy. SKELETON AND BODY WALL No acute or suspicious incidental findings. Fat containing umbilical hernia. LOWER THORAX Incidental 4 mm peripheral right lower lobe nodular opacity with straight and scalloped margins (6; 4 and 7; 153). Inferior lingula segment pleural-based band opacity consistent with nonspecific fibrosis. IMPRESSION: 1. 3.6 x 4.6 cm (5; 27) intraluminal left posterolateral bladder mass associated with a punctate medial peripheral calcification (2; 126). The epicenter of this lesion is anterior and superior to the left ureterovesical junction. This finding is considered to represent a urothelial carcinoma until proven otherwise. Urology referral is recommended for further management. 2. Incidental nonspecific morphologically benign 4 mm right lower lobe nodular opacity. Attention on follow-up is recommended. 3. No other findings suspicious for regional or distant metastatic disease. Please note that all CT scans at this facility use dose modulation, iterative reconstruction, and/or weight-based dosing when appropriate to reduce radiation dose to as low as reasonably achievable. Dictated by Pramod Ambrocio MD @ 10/13/2023 11:58:58 AM (Electronically Signed)
[2023-10-13 11:35] VITALS: BP 139/80; PULSE 50; RESP 16; O2SAT 98
== END 2023-10-13 12:50 | disposition home or self-care (01) ==
PROVIDERS: Emergency Provider Family Medicine; PCP Family Medicine
DX: R31.0 Gross hematuria (principal); N32.9 Bladder disorder, unspecified; R91.8 Other nonspecific abnormal finding of lung field
CPT/HCPCS: 36415; 51798; 74178; 80048; 81001; 85025; 85610; 86140; 87086; 99284; 99285; Q9967

== ENCOUNTER 2023-11-29 07:28 | Outpatient (CLI) | payer OTHER, SELFPAY ==
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
--- OUTSIDE RECORDS SUMMARY | 2023-12-05 05:13 | XMS_ITS | Encounter Summary ---
Author Organization [place] Address [address] [place] [id number] Care Team Providers Care Casting Machine Service Operator Name Role Phone No Ref-Primary, Physician Primary Care Provider Thang Conner MD Unavailable [phone] Thang Conner MD Unavailable [phone] Marcel Hammonds MD Primary Care Provider [phone] Marcel Hammonds MD Primary Care Provider [phone] Encounter Details Date Type Department Care Team (Late st Contact Info) Description 02/26/2019 External Order Results [facility] [address] [place] [phone] Social History Tobacco Use Types Packs/Day Years Used Date Smoking Tobacco: Never Assessed Sex and Gender Information Value Date Recorded Sex Assigned at Not on file Gender Identity Not on file Sexual Orientation Not on file documented as of this encounter Plan of Treatment Not on file documented as of this encounter Visit Diagnoses Not on filedocumented in this encounter Care Teams Casting Machine Service Operator Relationship Specialty Start Date End Date No Ref-Primary, Physician PCP - General 03/22/22 03/24/22 Marcel Hammonds MD [address] [address] PCP - General Family Medicine 05/23/21 03/21/22 Marcel Hammonds MD [facility] [address] [place] [address] PCP - General Family Medicine 03/25/22 Thang Conner MD [address] [place] [id number] Otolaryngology 03/22/22 Thang Conner MD [address] [place] [phone] Assigned Surgical Provider 05/12/22 04/05/23 documented as of this encounter
--- OUTSIDE RECORDS SUMMARY | 2023-12-05 05:13 | XMS_ITS | Encounter Summary ---
Author Organization [place] Address [address] [facility] [place] [address] Care Team Providers Care Field Merchandiser Name Role Phone Thang Conner MD Unavailable [phone] Marcel Hammonds MD Primary Care Provider [phone] Reason for Visit * Auth/Cert Specialty Diagnoses / Procedures Referred By Kwesiac t Referred To Contact Surgery Diagnoses Malignant neoplasm of bladder wall (H) Malignant neoplasm of bladder wall (H) [C67.9] Procedures [place] CYSTOSCOPY W TX MINOR LESION <0.5 CM [place] CYSTOURETHROSCOPY,FULGUR .5-2CM LE* [place] CYSTOURETHROSCOPY,FULGUR 2-5CM LESN [place] CYSTOURETHROSCOPY,FULGUR >5CM LESN CYSTOSCOPY, TRANSURETHRAL RESECTION OF BLADDER TUMOR Periop Services [address] [place] [address] Referral ID Status Reason Start Date Expiration Date Visits Re quested Visits Authorized [id number] 1 1 Encounter Details Date Type Department Care Team (Late st Contact Info) Description 11/15/2023 10:50 AM CDT - 11/15/2023 11:55 AM CDT Surgery [facility] PeriOP Services [address] [place] [address] Solomon Frazier MD [place] [facility] [address] [place] [address] CYSTOSCOPY, TRANSURETHRAL RESECTION OF BLADDER TUMOR Surgery Details Date/Time Status Location OR Service Patient Class Case Class Case Type Trauma Case? 11/15/23 10:50 AM Posted SH OR OR M 19 Urology Same Day Surgery Elective Panel 1 Procedure LRB Anes Op Region Wound Class Comments CYSTOSCOPY, TRANSURETHRAL RESECTION OF BLADDER TUMOR N/A General Urethra II-Clean Conta minated Surgeon Surgeon Role Service Panel Solomon Frazier MD Primary Urology 1 Special Needs *REQ TIME 60 MIN documented in this encounter Social History Tobacco Use Types Packs/Day Years [...] on file documented as of this encounter Last Filed Vital Signs Vital Sign Reading Time Taken Comments Blood Pressure 112/76 11/15/2023 9:07 AM CDT Pulse 54 11/15/2023 9:07 AM CDT Temperature 36.4 ??C (97.5 ??F) 11/15/2023 9:07 AM CD T Respiratory Rate 20 11/15/2023 9:07 AM CDT Oxygen Saturation 97% 11/15/2023 9:07 AM CDT Inhaled Oxygen Concentration - - Weight 88.2 kg (194 lb 8 oz) 11/15/2023 9:07 AM CDT Height 190.5 cm (6' 3) 11/15/2023 9:07 AM CDT Body Mass Index 24.31 11/15/2023 9:07 AM CDT documented in this encounter Discharge Instructions * Discharge Instructions* Virginia Sahu RN - 11/15/2023 9:26 AM CDT Today you were given 975 mg of Tylenol at 09:30 am. The recommended daily maximum dose is 4000 mg. Reasons to contact your surgeon: Signs of possible infection: Check daily for redness, swelling, warmth, red streaks or foul drainage. Elevated temperature. Pain not controlled with pain medication and/or rest. Uncontrolled nausea or vomiting. Any questions or concerns. Same Day Surgery Discharge Instructions for Sedation and General Anesthesia It's not unusual to feel dizzy, light-headed or faint for up to 24 hours after surgery or while taking pain medication. If you have these symptoms: sit for a few minutes before standing and have someone assist you when you get up to walk or use the bathroom. You should rest and relax for the next 24 hours. We recommend you make arrangements to have an adult stay with you for at least 24 hours after your discharge. Avoid hazardous and strenuous activity. DO NOT DRIVE any vehicle or operate mechanical equipment for 24 hours following the end of your surgery. Even though you may feel normal, your reactions may be affected by the medication you have received. Do not drink alcoholic beverages for 24 hours following surgery. Slowly progress to your regular diet as you feel able. It's not unusual to feel nauseated and/or vomit after receiving anesthesia. If you develop these symptoms, drink clear liquids (apple juice, jackie jerel, broth, 7-up, etc. ) until you feel better. If your nausea and vomiting persists for 24 hours, please notify your surgeon. All narcotic pain medications, along with inactivity and anesthesia, can cause constipation. Drinking plenty of liquids and increasing fiber intake will help. For any questions of a medical nature, call your surgeon. Do not make important decisions for 24 hours. If you had general anesthesia, you may have a sore throat for a couple of days related to the breathing tube used during surgery. You may use Cepacol lozenges to help with this discomfort. If it worsens or if you develop a fever, contact your surgeon. If you feel your pain is not well managed with the pain medications prescribed by your surgeon, please contact your surgeon's office to let them know so they can address your concerns. DISCHARGE INSTRUCTIONS FOR CATHETER CARE AT HOME . Basic Catheter Care Always wash hands before and after handling your catheter. Use soap and water to wash the area around your catheter. Do this procedure twice a day. Proper cleansing will help keep the area from becoming irritated or infected. Leg Bag This is a small plastic bag that collects urine draining from your catheter and then strapped around your thigh. It will need to be emptied when the bag is 1/2 to 3/4 full. Large Drainage Bag This bag is larger than the leg bag and holds more urine. It is to be used while at home, especially at night. Before you go to bed, change the leg bag to the large drainage bag. Pinch off the catheter with your fingers and swab the connection between the catheter and leg bag with alcohol sponge. Disconnect the leg bag and connect the large drainage bag to your catheter. When you get into bed, arrange the drainage tubing so that it doesn???t kink. Be sure to keep the bag below the level of your bladder and allow enough slack for turning. Cleaning Your Drainage Bags Wash hands. Using funnel or syringe, fill the bag half full with a solution of 1/2 vinegar and 1/2 water. Shake bag, allowing mixture to cleanse inside of bag. Empty out all vinegar and water mixture from your bag. Hang bag to dry when not in use. Clean your bags anytime you change them. Helpful Hints Always keep drainage bags below bladder level to insure adequate drainage. Drink 4-6 glasses of water daily along with other fluids you normally drink to keep urine free of infection and / or clots. If you notice no urine in your bag for 2 to 4 hours or you develop extreme discomfort in bladder area, your catheter maybe plugged. Notify your doctor. If you notice your urine becomes foul smelling and cloudy, notify your doctor. Also notify your doctor if you develop fever or chills. If you notice urine leaking around the outside of the catheter, check to be sure catheter or tubingis not kinked. Don???t use leg bag while in bed. If you have questions or concerns about your procedure, Call Dr. Frazier at [phone] documented in this encounter Medications at Time of Discharge Medication Sig Dispensed Refills Start Date End Date oxyCODONE (ROXICODONE) 5 MG tabletIndications:Malign ant neoplasm of lateral wall of urinary bladder (H) Take 1-2 tablets (5-10 mg) by mouth every 4 hours as needed for moderate to severe pain. 10 tablet 11/15/2023 senna-docusate (SENOKOT-S/PERICOLACE) 8.6-50 MG tabletIndications:Malign ant neoplasm of lateral wall of urinary bladder (H) Take 1-2 tablets by mouth 2 times daily. 30 tablet 11/15/2023 documented as of this encounter Progress Notes * Stevie Cole RN - 11/15/2023 3:25 PM CDT Discharge instructions reviewed w/ pt and pt's spouse and sister, Iva. Meds opened and verified. IV removed. Beltran teaching completed. VSS. No questions or concerns. Pt transported to [facility] via w/c. * Virginia Sahu RN - 11/15/2023 2:47 PM CDT Pt dressed, up in recliner and transported to [facility] 2. documented in this encounter Procedure Notes * Solomon Frazier MD - 11/15/2023 1:07 PM CDT UROLOGY OPERATIVE REPORT Derek Parikh 1965, 58 year old SURGEON Surgeon(s): Solomon Frazier MD PREOP DIAGNOSIS Bladder tumor POSTOP DIAGNOSIS Same PROCEDURE Procedure(s): CYSTOSCOPY, TRANSURETHRAL RESECTION OF BLADDER TUMOR FINDINGS Large tumor over 5cm in size. Papillary on a moderate base. No satellite lesions. Modifier 22 ANESTHESIA General STAFF Director Meetings: Jose Daniel Varner RN Relief Director Meetings: Sanya Cheatham RN Relief Scrub: Alta Victor Scrub Person: Lenora Mckenna COMPLICATIONS None SPECIMEN Tumor chips, one of which was the deepest and that was sent as a separate specimen. PROSTHESIS/ GRAFTS/ DEVICES None EBL 20cc TECHNIQUE The patient was taken to the cysto suite and placed in th dorsal lithotomy positron. The external genitalia were prepped and draped in a sterile fashion and a time out was taken to verify the correctprocedure and patient. The 26F continuous flow sheath with the obturator was gently passed through the urethra without force or trauma. The bladder was viewed with the above findings. The 24F loupe was used to resect the tumor. The tumor was completely excised. Due to the mobility size, the procedure took longer than 150% of the normal time. Some paralysis was needed due to the obturator reflex (left). The base was fulgurated with a roller ball. The largest fragment had to be removed with the 25F scope and the lithotrite. All of the other fragments were removed with bulb suction. An 20F beltran was placed at the end of the case and irrigated clear. Specimens were sent to pathology in formalin. PLAN Keep Beltran overnight and remove in am. Will call with the final pathology He'll likely need a metastatic workup with a CT scan soon. Solomon Frazier MD documented in this encounter Plan of Treatment Not on file documented as of this encounter Procedures Procedure Name Priority Date/Time Associated Diagnosis Comments SURGICAL PATHOLOGY EXAM Routine 11/15/2023 12:55 PM CDT CYSTOSCOPY, WITH TRANSURETHRAL RESECTION BLADDER TUMOR 11/15/2023 11:07 AM CDT Malignant neoplasm of bladder wall (H) Special Needs *REQ TIME 60 MIN documented in this encounter Results * (ABNORMAL) Surgical Pathology Exam (11/15/2023 12:55 PM CDT) Case Report Surgical Pathology Report ? Case: [id number] ? Authorizing Provider: ??Solomon Frazier MD ?? Collected: ? 11/15/2023 12:55 PM ? Ordering Location: ? [facility] ?Received: ?11/15/2023 01:28 PM ? [facility] OR ? Pathologist: ? Jude Hubbard, ? MD ? Specimens: ?? A) - Urinary Bladder, DEEP MARGIN ? B) - Urinary Bladder, BLADDER TUMOR ? 11/18/2023 2:10 PM CDT [facility] Final Diagnosis A. 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 Urinary Bladder, [...] Caldwell(ASCP)CM 11/15/2023 2:21 PM 11/18/2023 2:10 PM [facility] Microscopic Description A. Sections show tangentially [...] evidence of invasive malignancy. 11/18/2023 2:10 PM [facility] MCRS Yes(A) N/A 11/18/2023 2:10 PM [facility] Performing Labs The technical component of this testing was completed at [facility]. Stain controls for all stains [...] CDT Solomon SANTOS - [facility] [address], [address] [place] [address], [facility] [phone] documented in this encounter Visit Diagnoses Diagnosis Malignant neoplasm of lateral wall of urinary bladder (H)- Primary Malignant neoplasm of lateral wall of urinary bladder Malignant neoplasm of bladder wall (H) Malignant neoplasm of bladder, part unspecified documented in this encounter Administered Medications Inactive Administered Medications - up to 3 most recent administrations Medication Order MAR Action Action Date Dose Rate Site ondansetron (ZOFRAN) injection 4 mg 4 mg, Intravenous, EVERY 30 MIN PRN, nausea, Administer over 2-5 Minutes, Starting on Sat11/15/23 at 1438, For 2 doses, This is Step 1 of nausea and vomiting management. If nausea/vomiting not resolved in 15 minutes, then go to Step 2 dexamethasone (DECADRON) IV. MAX total dose = 8 mg, including OR dosing., PACU $Given 11/15/2023 2:38 PM CDT 4 mg sterile water irrigation (bag) PRN, Intra-procedure, Starting on Sat11/15/23 at 1154, Until Sat11/15/23 at 1315 $Given 11/15/2023 12:50 PM CDT 9,000 mLs Operative Site/Surgical Site $Given 11/15/2023 12:24 PM CDT 9,000 mLs O perative Site/Surgical Site $Given 11/15/2023 11:54 AM CDT 9,000 mLs O perative Site/Surgical Site documented in this encounter Active and Recently Administered Medications Times are shown in CDT. Scheduled Medication Order 11/13/2023 11/14/2023 11/15/2023 ceFAZolin Sodium (ANCEF) injection 2 g (COMPLETED) Routine, 2 g, Intravenous, PRE-OP/PRE-PROCEDURE, Starting on Sat11/15/23 at 0852, For 1 dose, Give first dose within 1 hour PRIOR to incision. If patient weight is greater than or equal to 120 kg increase dose to 3 g., Indications: Perioperative Pharmacoprophylaxis, Pre-procedure 1107 ($Given - Provi glen: Erika Stewart APRN CRNA) HYDROcodone-acetaminophen (NORCO) 5-325 MG per tablet 1 tablet 1 tablet, Oral, ONCE, On Sat11/15/23 at 1430, For 1 dose, May administer ONCE as needed for pain control or improvement in physical function. Notify provider to assess for uncontrolled pain or??analgesic side effects. Maximum acetaminophen dose from all sources= 75 mg/kg/day not to exceed 4 grams 1430 (Canceled Entry - Provider: Orders Generic Provider - Comment: Automatically canceled at discontinue of medication order) PRN Medication Order 11/13/2023 11/14/2023 11/15/2023 ondansetron (ZOFRAN) injection 4 mg (CANCELED)(Linked Group 1) 4 mg, Intravenous, EVERY 30 MIN PRN, nausea, Administer over 2-5 Minutes, Starting on Sat11/15/23 at 1438, For 2 doses, This is Step 1 of nausea and vomiting management. If nausea/vomiting not resolved in 15 minutes, then go to Step 2 dexamethasone (DECADRON) IV. MAX total dose = 8 mg, including OR dosing., PACU 1438 ($Given - Provi glen: Virginia Sahu RN) sterile water irrigation (bag) (CANCELED) PRN, Intra-procedure, Starting on Sat11/15/23 at 1154, Until Sat11/15/23 at 1315 1154 ($Given - Provi glen: Solomon Frazier MD)1224 ($Given - Provider: Solomon Frazier MD)1250 ($Given - Provider: Solomon Frazier MD) Linked Groups Order Group 1: ondansetron (ZOFRAN ODT) ODT tab 4 mg (CANCELED) 4 mg, Oral, EVERY 30 MIN PRN, nausea, Starting on Sat11/15/23 at 1438, For 2 doses, Administer if NO vascular access present. This is Step 1 of nausea and vomiting management. If nausea/vomiting not resolved in 15 minutes, go to Step 2 dexamethasone (DECADRON) IV. MAX total dose = 8 mg, including OR dosing. With dry hands, peel back foil backing and gently remove tablet. Do not push oral disintegrating tablet through foil backing. Administer immediately on tongue and oral disintegrating tablet dissolves in seconds, then swallow with saliva. Liquid not required., PACU Or ondansetron (ZOFRAN) injection 4 mg (CANCELED)Jump to med 4 mg, Intravenous, EVERY 30 MIN PRN, nausea, Administer over 2-5 Minutes, Starting on Sat11/15/23 at 1438, For 2 doses, This is Step 1 of nausea and vomiting management. If nausea/vomiting not resolved in 15 minutes, then go to Step 2 dexamethasone (DECADRON) IV. MAX total dose = 8 mg, including OR dosing., PACU documented in this encounter Care Teams Field Merchandiser Relationship Specialty Start Date End Date Marcel Hammonds MD [facility] [address] [place] [address] PCP - General Family Medicine 03/25/22 Thang Conner MD [address] [place] [address] Otolaryngology 03/22/22 documented as of this encounter
--- OUTSIDE RECORDS SUMMARY | 2023-12-05 05:13 | XMS_ITS | Encounter Summary ---
Author Organization [place] Address [address] [place] [address] Care Team Providers Care Creative Services Designer Name Role Phone Thang Conner MD Unavailable [phone] Thang Conner MD Unavailable [phone] Marcel Hammonds MD Primary Care Provider [phone] Encounter Details Date Type Department Care Team (Late st Contact Info) Description 05/05/2022 [facility] Medical Advice [facility] [address] [address] Thang Conner MD [address] [place] [address] Social History Tobacco Use Types Packs/Day Years [...] Coronavirus/COVID-19? No / Unsure 05/04/2022 9:37 AM FITTING ROOM ASSOCIATE documented as of this encounter Plan of Treatment Not on file documented as of this encounter Visit Diagnoses Not on filedocumented in this encounter Care Teams Creative Services Designer Relationship Specialty Start Date End Date Marcel Hammonds MD [address] [place] [address] PCP - General Family Medicine 03/25/22 Thang Conner MD [address] [place] [address] Otolaryngology 03/22/22 Thang Conner MD [address] [place] [address] Assigned Surgical Provider 05/12/22 04/05/23 documented as of this encounter
--- OUTSIDE RECORDS SUMMARY | 2023-12-05 05:13 | XMS_ITS | Clinical Summary ---
Author Organization [place] Address [address] [facility] [place] [address] Care Team Providers Care Food Taster Name Role Phone Thang Conner MD Unavailable [phone] Marcel Hammonds MD Primary Care Provider [phone] Allergies No known active allergies Medications Medication Sig Dispensed Refills Start Date End Date Status oxyCODONE (ROXICODONE) 5 MG tabletIndications:Ma lignant neoplasm of lateral wall of urinary bladder (H) Take 1-2 tablets (5-10 mg) by mouth every 4 hours as needed for moderate to severe pain. 10 tablet 11/15/2023 Active senna-docusate (SENOKOT-S/PERICOLAC E) 8.6-50 MG tabletIndications:Ma lignant neoplasm of lateral wall of urinary bladder (H) Take 1-2 tablets by mouth 2 times daily. 30 tablet 11/15/2023 Active Encounters Date Type Department Care Team Description 11/15/2023 11:07 AM CDT Anesthesia Event [facility] [address] [place] [phone] Virginia Louise MD Rakke, Michelle Mckeon MD 11/15/2023 10:50 AM CDT - 11/15/2023 11:55 AM CDT Surgery [facility] [address] [place] [phone] Solomon Frazier MD CYSTOSCOPY, TRANSURETHRAL RESECTION OF BLADDER TUMOR 11/15/2023 8:34 AM CDT - 11/15/2023 3:25 PM CDT Hospital Encounter [facility] PreOP/Phase II [address] [place] [address] Solomon Frazier MD Malignant neoplasm of lateral wall of urinary bladder (H) (Primary Dx) Discharge Disposition: Home or Self Care from Last 3 Months Social History Tobacco Use Types Packs/Day Years [...] 11/15/2023 9:07 AM CDT Plan of Treatment Health Maintenance Due Date Last Done Comments ADVANCE CARE PLANNING 1965 ANNUAL REVIEW OF HM ORDERS 1964 CT COLONOGRAPHY 1965 FLEX SIG 1965 GLUCOSE 1965 YEARLY PREVENTIVE VISIT 1965 sDNA (Cologuard) 1965 Pneumococcal Vaccine: Pediatrics (0 to 5 Years) and At-Risk Patients (6 to 64 Years) (1 of 2 - PCV) 1970 COLONOSCOPY 1974 HIV SCREENING 08/12/1979 HEPATITIS C SCREENING 1982 HEPATITIS B IMMUNIZATION (1 of 3 - 19+ 3-dose series) 08/12/1983 LIPID 2004 COLORECTAL CANCER SCREENING 02/28/2017 FIT 02/28/2017 02/29/2016 LUNG CANCER SCREENING 12/01/2022 12/01/2021 PHQ-2 (once per calendar year) 2023 05/04/2022 COVID-19 Vaccine ( season) 2023 03/01/2023, 02/05/2022, 10/24/2021, Additional history exists INFLUENZA VACCINE (#1) 2023 3, 03/01/2023, 01/18/2022, Additional history exists DTAP/TDAP/TD IMMUNIZATION (4 - [...] Case Report Surgical Pathology Report ? Case: [id number] ? Authorizing Provider: ??Solomon Frazier MD ?? Collected: ? 11/15/2023 12:55 PM ? Ordering Location: ? [facility] ?Received: ?11/15/2023 01:28 PM ? [facility] ? Pathologist: ? Jude Hubbard, ? MD ? Specimens: ?? A) - Urinary Bladder, DEEP MARGIN ? B) - Urinary Bladder, BLADDER TUMOR ? 11/18/2023 2:10 PM [facility] Final Diagnosis A. 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 Urinary Bladder, [...] Caldwell(ASCP)CM 11/15/2023 2:21 PM 11/18/2023 2:10 PM [facility] Microscopic Description A. Sections show [...] component of this testing was completed at [facility]. Stain controls for all [...] CDT 11/15/2023 1:28 PM CDT Solomon SANTOS [facility] Organization Address City/State/ZIP Co de Phone Number LABORATORY [facility] [address] 1[address] floor, [address] [place] [address], [facility] [phone] * ANE AIRWAY SUPRAGLOTTIC PERFORMABLE (11/15/2023 11:19 AM CDT) Narrative Erika Stewart APRN CATEGORY MANAGER - 11/15/2023 11:19 AM CDT Erika Stewart APRN CRNA ? 11/15/2023 11:20 AM Airway ? Patient location during procedure: OR Staff - ? Anesthesiologist: ??Michelle Mejia MD ? CATEGORY MANAGER: Erika Stewart APRN CRNA ? Performed By: CATEGORY MANAGER Consent for Airway ? Urgency: elective Indications [...] Dentition: Intact and Unchanged Michelle Mejia MD [place] ANESTHESIA from Last 3 Months Care Teams Food Taster Relationship Specialty Start Date End Date Marcel Hammonds MD [facility] [address] [place] [address] PCP - General Family Medicine 03/25/22 Thang Conner MD [address] [place] [address] Otolaryngology 03/22/22
--- OUTSIDE RECORDS SUMMARY | 2023-12-05 05:13 | XMS_ITS | Encounter Summary ---
Author Organization [facility] Address [address] [facility] [place] [address] Care Team Providers Care Nurse Substance Abuse Name Role Phone Thang Conner MD Unavailable [phone] Marcel Hammonds MD Primary Care Provider [phone] Reason for Visit * Auth/Cert Specialty Diagnoses / Procedures Referred By Contac t Referred To Contact Surgery Diagnoses Malignant neoplasm of bladder wall (H) Malignant neoplasm of bladder wall (H) [C67.9] Procedures [place] CYSTOSCOPY W TX MINOR LESION <0.5 CM TN CYSTOURETHROSCOPY,FULGUR .5-2CM LE* TN CYSTOURETHROSCOPY,FULGUR 2-5CM LESN TN CYSTOURETHROSCOPY,FULGUR >5CM LESN CYSTOSCOPY, TRANSURETHRAL RESECTION OF BLADDER TUMOR Periop Services [address] [place] [address] Referral ID Status Reason Start Date Expiration Date Visits Re quested Visits Authorized [id number] 1 1 Encounter Details Date Type Department Care Team (Late st Contact Info) Description 11/15/2023 11:07 AM CDT Anesthesia Event [facility] PeriOP Services [address] [place] [address] Virginia Louise [place] [facility] [place] [place] [address] [place] [address] Michelle Mejia MD [facility]EST[facility]ES[facility]OLOG[facility] [address] [place] [address] Anesthesia Record Procedure Summary Procedure Name Responsible Anesthesiologist Anesthesia Start Time Anesthesia Stop Time CYSTOSCOPY, TRANSURETHRAL RESECTION OF BLADDER TUMOR (Urethra) Virginia Louise MD 11/15/23 1107 11/15/23 1322 Events Date Time Event Comment 11/15/2023 0922 1107 An Start Anesthesia Star t is defined as when the anesthesia provider assumed care, began anesthesia prep, remained continuously present with the patient, and excludes all time for performing the pre-anesthesia evaluation. The Pre-Anesthesia Evaluation was completed before Anesthesia Start. 1107 An Start Data 1107 AN REASSESS I attest that I have identified and re-evaluated the patient immediately before the induction of anesthesia and I am satisfied that the anesthetic plan is suitable for the patient's condition and procedure. The first vital signs recorded are pre- induction. Erika Stewart APRN ENTRY LEVEL AUTOMOTIVE TECHNICIAN 1109 An Induction 1109 MD Present 1113 An LMA 1148 MD Present 1310 LMA Removed 1313 MD Present 1313 an stop data 1322 An Stop Electronically signed by Erika Stewart APRN CRNA on November 15, 2023 1:22 PM Meds Name Total midazolam 1 mg/mL 2 mg fentaNYL 50 mcg/mL 100 mcg HYDROmorphone 1 mg/mL 0.5 mg lidocaine 2% 100 mg propofol 10 mg/mL 200 mg phenylephrine (DESTIN-SYNEPHRINE) injection 850 mcg dexamethasone (DECADRON) 4 mg/mL 4 mg ondansetron 2 mg/mL 4 mg glycopyrrolate 0.2 mg/mL 0.4 mg ceFAZolin Sodium (ANCEF) injection 2 g 2 g rocuronium 10 mg/mL 70 mg dexmedeTOMIDine (PRECEDEX) 4 mcg/mL in N aCl 25mL 20 mcg sugammadex (BRIDION) 200mg/2mL 200 mg LR 1,200 mL * Agents Name O2 N2O Air Exp Sevoflurane Exp Isoflurane Exp Desflurane O2 Delivery Device Ins Sevoflurane Ins Isoflurane Ins Desflurane O2 Auxiliary * Blood No blood administrations on file. Lines, Drains, and Airways Type Details Placement Removal Peripheral IV 11/15/23; 0942; 20 G ; BD; Anterior, Right; Lower forearm 11/15/23 0942 by Mikayla Rios RN 11/15/23 1459 by Stevie Cole RN Supraglottic Airway Placement Date: 11/15/23; Placement Time: 112 (created via procedure documentation); Mask Ventilation: 0; LMA Size: 5; Airway Brand: Ambu AuraGain; Attempts: 1 11/15/23 1120 by Erika Stewart APRN ENTRY LEVEL AUTOMOTIVE TECHNICIAN 11/15/23 1310 by Erika Stewart APRN ENTRY LEVEL AUTOMOTIVE TECHNICIAN Urethral Catheter 11/15/23; 1303; Surgical procedure; 22 fr 11/15/23 1303 by Jose Daniel Varner RN 11/15/23 1625 by Inpatient, Nurse documented in this encounter Social History Tobacco Use Types Packs/Day Years Used Date Smoking Tobacco: Former Cigarettes Smokeless Tobacco: Never Alcohol Use Standard Drinks/Week Comments Never 0 [...] on file documented as of this encounter OR Notes * Anesthesia Postprocedure Evaluation - Virginia Louise MD - 11/15/2023 2:51 PM CDT Patient: Derek Parikh Procedure: Procedure(s): CYSTOSCOPY, TRANSURETHRAL RESECTION OF BLADDER TUMOR Anesthesia Type: General Note: Disposition: Outpatient Postop Pain Control: Uneventful Sign Out: Well controlled pain PONV: No Neuro/Psych: Uneventful Sign Out: Acceptable/Baseline neuro status Airway/Respiratory: Uneventful Sign Out: Acceptable/Baseline resp. status CV/Hemodynamics: Uneventful Sign Out: Acceptable CV status; No obvious hypovolemia; No obvious fluid overload Other NRE: NONE DID A NON-ROUTINE EVENT OCCUR? No Last vitals: Vitals Value Taken Time BP 113/78 11/15/23 1415 Temp 36.3 ??C (97.3 ??F) 11/15/23 1415 Pulse 54 11/15/23 1427 Resp 11 11/15/23 1427 SpO2 96 % 11/15/23 1428 Vitals shown include unfiled device data. Electronically Signed By: Virginia Louise MD November 15, 2023 2:51 PM * Anesthesia Procedure Notes - Erika Stewart APRN CRNA - 11/15/2023 11:19 AM CDTAssociated Order(s): Airway Airway Patient location during procedure: OR Staff - Anesthesiologist: Michelle Mejia MD ENTRY LEVEL AUTOMOTIVE TECHNICIAN: Erika Stewart APRN ENTRY LEVEL AUTOMOTIVE TECHNICIAN Performed By: ENTRY LEVEL AUTOMOTIVE TECHNICIAN Consent for Airway Urgency: elective Indications and Patient Condition Indications for airway management: mundo-procedural Induction type:intravenous Mask difficulty assessment: 0 - not attempted Final Airway Details Final airway type: supraglottic airway Supraglottic Airway Details Type: LMA Brand: Ambu AuraGain LMA size: 5 Post intubation assessment Placement verified by: capnometry and chest rise Number of attempts at approach: 1 Ease of procedure: easy Dentition: Intact and Unchanged * Anesthesia Preprocedure Evaluation - Michelle Mejia MD - 11/15/2023 9:21 AM CDT Anesthesia Pre-Procedure Evaluation Patient: Derek Parikh : 1965 Procedure : Procedure(s): CYSTOSCOPY, TRANSURETHRAL RESECTION OF BLADDER TUMOR Past Medical History: Diagnosis Date Aortic root dilatation (H24) Benign paroxysmal positional vertigo Chronic sinusitis Hematuria 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 Type: General. No history of anesthetic complications ROS/MED HX ENT/Pulmonary: - neg pulmonary ROS Neurologic: - neg neurologic ROS Cardiovascular: - neg cardiovascular ROS METS/Exercise Tolerance: >4 METS Hematologic: Musculoskeletal: GI/Hepatic: (+) liver disease, Renal/Genitourinary: Endo: Psychiatric/Substance Use: - neg psychiatric ROS (+) alcohol abuse (remote history) (-) chronic opioid use history Infectious Disease: Malignancy: (+) Malignancy, History of Other.Other CA Bladder status post. Other: - neg other ROS Physical Exam Airway Mallampati: II TM distance: > 3 FB Neck ROM: full Mouth opening: > 3 cm Respiratory Devices and Support Dental (+) Minor Abnormalities - some fillings, tiny chips Cardiovascular cardiovascular exam normal Rhythm and rate: regular and normal Pulmonary pulmonary exam normal breath sounds clear to auscultation OUTSIDE LABS: CBC: No results found for: WBC, HGB, HCT, PLT BMP: No results found for: NA, POTASSIUM, CHLORIDE, CO2, BUN, CR, GLC COAGS: No results found for: PTT, INR, FIBR POC: No results found for: BGM, HCG, HCGS HEPATIC: No results found for: ALBUMIN, PROTTOTAL, ALT, AST, GGT, ALKPHOS, BILITOTAL,BILIDIRECT, ORACIO OTHER: No results found for: PH, LACT, A1C, LAURA, PHOS, MAG, LIPASE, AMYLASE, TSH,T4, T3, CRP, SED Anesthesia Plan ASA Status: 2 NPO Status: NPO Appropriate Anesthesia Type: General. - Airway: LMA Induction: Propofol. Consents - Extended Intubation/Ventilatory Support Discussed: No. - Patient is DNR/DNI Status: No Use of blood products discussed: No . Postoperative Care Pain management: Multi-modal analgesia. PONV prophylaxis: Ondansetron (or other 5HT-3), Dexamethasone or Solumedrol Comments: Michelle Mejia MD I have reviewed the pertinent notes and labs in the chart from the past 30 days and (re)examined the patient. Any updates or changes from those notes are reflected in this note. documented in this encounter Miscellaneous Notes * Anesthesia Care Transfer Note - Erika Stewart APRN ENTRY LEVEL AUTOMOTIVE TECHNICIAN - 11/15/2023 1:21 PM CDT Patient: Derek Parikh Procedure: Procedure(s): CYSTOSCOPY, TRANSURETHRAL RESECTION OF BLADDER TUMOR Diagnosis: Malignant neoplasm of bladder wall (H) [C67.9] Diagnosis Additional Information: No value filed. Anesthesia Type: General Note: Oropharynx: oropharynx clear of all foreign objects and spontaneously breathing Level of Consciousness: awake Oxygen Supplementation: face mask Level of Supplemental Oxygen (L/min / FiO2): 6 Independent Airway: airway patency satisfactory and stable Dentition: dentition unchanged Vital Signs Stable: post-procedure vital signs reviewed and stable Report to RN Given: handoff report given Patient transferred to: PACU Comments: At end of procedure, spontaneous respirations, adequate tidal volumes, reversed with sugammadex with TOF 3/4, followed commands to voice, LMA removed atraumatically, oropharynx suctioned, airway patent after LMA removal. Oxygen via facemask at 6 liters per minute to PACU. Oxygen tubing connected to wall O2 in PACU, SpO2, NiBP, and EKG monitors and alarms on and functioning, Marilu Hugger warmer connected to patient gown, report on patient's clinical status given to ASSEMBLY MACHINE TENDER, RN questionsanswered. Handoff Report: Identifed the Patient, Identified the Reponsible Provider, Reviewed the pertinent medical history, Discussed the surgical course, Reviewed Intra-OP anesthesia mangement and issues during anesthesia, Set expectations for post-procedure period and Allowed opportunity for questions andacknowledgement of understanding Vitals: Vitals Value Taken Time BP 130/78 11/15/23 1317 Temp Pulse 75 11/15/23 1320 Resp 14 11/15/23 1320 SpO2 100 % 11/15/23 1320 Vitals shown include unfiled device data. Electronically Signed By: Erika Stewart APRN CRNA November 15, 2023 1:21 PM documented in this encounter Plan of Treatment Not on file documented as of this encounter Procedures Procedure Name Priority Date/Time Associated Diagnosis Comments ANE AIRWAY SUPRAGLOTTIC PERFORMABLE Routine 11/15/2023 11:19 AM CDT documented in this encounter Results * ANE AIRWAY SUPRAGLOTTIC PERFORMABLE (11/15/2023 11:19 AM CDT) Narrative Erika Stewart APRN CRNA - 11/15/2023 11:19 AM CDT Erika Stewart APRN CRNA ? 11/15/2023 11:20 AM Airway ? Patient location during procedure: OR Staff - ? Anesthesiologist: ??Michelle Mejia MD ? ENTRY LEVEL AUTOMOTIVE TECHNICIAN: Erika Stewart APRN CRNA ? Performed By: ENTRY LEVEL AUTOMOTIVE TECHNICIAN Consent for Airway ? Urgency: elective Indications [...] Dentition: Intact and Unchanged Michelle Mejia MD [place] [facility] documented in this encounter Visit Diagnoses Not on filedocumented in this encounter Administered Medications Inactive Administered Medications - up to 3 most recent administrations Medication Order MAR Action Action Date Dose Rate Site ceFAZolin Sodium (ANCEF) injection 2 g Routine, 2 g, Intravenous, PRE-OP/PRE-PROCEDURE, Starting on Sat11/15/23 at 0852, For 1 dose, Give first dose within 1 hour PRIOR to incision. If patient weight is greater than or equal to 120 kg increase dose to 3 g., Indications: Perioperative Pharmacoprophylaxis, Pre-procedure $Given 11/15/2023 11:07 AM CDT 2 g dexAMETHasone (DECADRON) injection Intravenous, PRN, Administer over 1 Minutes, Starting on Sat11/15/23 at 1118, Anesthesia Intra-op $Given 11/15/2023 11:18 AM CDT 4 mg dexmedeTOMIDine (PRECEDEX) 4 mcg/mL in sodium chloride 0.9 % 50 mL infusion Intravenous, PRN, Starting on Sat11/15/23 at 1247, Anesthesia Intra-op $Given 11/15/2023 12:49 PM CDT 12 mcg $Given 11/15/2023 12:47 PM CDT 8 mcg fentaNYL (PF) (SUBLIMAZE) injection Intravenous, PRN, Administer over 3-5 Minutes, Starting on Sat11/15/23 at 1109, Anesthesia Intra-op $Given 11/15/2023 11:23 AM CDT 50 mcg $Given 11/15/2023 11:09 AM CDT 50 mcg glycopyrrolate (ROBINUL) injection Intravenous, PRN, Administer over 1-2 Minutes, Starting on Sat11/15/23 at 1123, Anesthesia Intra-op $Given 11/15/2023 11:35 AM CDT 0.2 mg $Given 11/15/2023 11:23 AM CDT 0.2 mg HYDROmorphone (DILAUDID) injection Intravenous, PRN, Starting on Sat11/15/23 at 1129, Anesthesia Intra-op $Given 11/15/2023 11:29 AM CDT 0.5 mg lactated ringers infusion Intravenous, CONTINUOUS PRN, Anesthesia Intra-op, Starting on Sat11/15/23 at 1107, Until Sat11/15/23 at 1322 $New Bag 11/15/2023 12:19 PM CDT $New Bag 11/15/2023 11:07 AM CDT lidocaine 2% injection (MDV) Intravenous, PRN, Starting on Sat11/15/23 at 1109, Anesthesia Intra-op $Given 11/15/2023 11:09 AM CDT 100 mg midazolam (VERSED) injection Intravenous, Administer over 2 Minutes, PRN, Starting on Sat11/15/23 at 1107, Anesthesia Intra-op $Given 11/15/2023 11:07 AM CDT 2 mg ondansetron (ZOFRAN) injection Intravenous, PRN, Administer over 2-5 Minutes, Starting on Sat11/15/23 at 1119, Anesthesia Intra-op $Given 11/15/2023 11:19 AM CDT 4 mg phenylephrine (DESTIN-SYNEPHRINE) injection Intravenous, CONTINUOUS PRN, Starting on Sat11/15/23 at 1120, Anesthesia Intra-op $Bolus 11/15/2023 12:11 PM CDT 100 mcg $Bolus 11/15/2023 11:56 AM CDT 150 mcg $Bolus 11/15/2023 11:45 AM CDT 200 mcg propofol (DIPRIVAN) injection 10 mg/mL vial Intravenous, PRN, Starting on Sat11/15/23 at 1109, Anesthesia Intra-op $Given 11/15/2023 11:09 AM CDT 200 mg rocuronium injection Intravenous, PRN, Starting on Sat11/15/23 at 1145, Anesthesia Intra-op $Given 11/15/2023 12:42 PM CDT 20 mg $Given 11/15/2023 12:11 PM CDT 20 mg $Given 11/15/2023 12:09 PM CDT 10 mg sugammadex (BRIDION) injection Intravenous, PRN, Starting on Sat11/15/23 at 1303, Anesthesia Intra-op $Given 11/15/2023 1:03 PM CDT 200 mg documented in this encounter Care Teams Nurse Substance Abuse Relationship Specialty Start Date End Date Marcel Hammonds MD [facility] [address] [place] [address] PCP - General Family Medicine 03/25/22 Thang Conner MD [address] [place] [address] Otolaryngology 03/22/22 documented as of this encounter
--- OUTSIDE RECORDS SUMMARY | 2023-12-05 05:13 | XMS_ITS | Encounter Summary ---
Author Organization [place] [facility] Address [address] [place] [address] Care Team Providers Care Residential Care Facility Manager Name Role Phone Thang Conner MD Unavailable [phone] Marcel Hammonds MD Primary Care Provider [phone] Reason for Visit * Auth/Cert Specialty Diagnoses / Procedures Referred By Contac t Referred To Contact Surgery Diagnoses Malignant neoplasm of bladder wall (H) Malignant neoplasm of bladder wall (H) [C67.9] Procedures [place] CYSTOSCOPY W TX MINOR LESION <0.5 CM [place] CYSTOURETHROSCOPY,FULGUR .5-2CM LE* [place] CYSTOURETHROSCOPY,FULGUR 2-5CM LESN [place] CYSTOURETHROSCOPY,FULGUR >5CM LESN CYSTOSCOPY, TRANSURETHRAL RESECTION OF BLADDER TUMOR Sh Periop Services [address] [place] [address] Referral ID Status Reason Start Date Expiration Date Visits Re quested Visits Authorized [id number] 1 1 Encounter Details Date Type Department Care Team (Latest Contact Info) Description 11/15/2023 8:34 AM CDT - 11/15/2023 3:25 PM CDT Hospital Encounter [facility] PreOP/Phase II [address] [place] [address] Solomon Frazier MD [place] [facility] [address] [place] [address] Malignant neoplasm of lateral wall of urinary bladder (H) (Primary Dx) Discharge Disposition: Home or Self Care Social History Tobacco Use Types Packs/Day Years [...] about your procedure, Call Dr. Frazier at [phone] documented in this encounter Medications at Time [...] No questions or concerns. Pt transported to door2 via w/c. * Virginia Sahu RN - 11/15/2023 2:47 PM CDT Pt dressed, up in recliner and transported to Phase 2. documented in this encounter Procedure Notes [...] satellite lesions. Modifier 22 ANESTHESIA General STAFF Hard Rock Drill Operator: Jose Daniel Varner, RN Relief Hard Rock Drill Operator: Sanya Cheatham RN Relief Scrub: Alta Victor [...] Case Report Surgical Pathology Report ? Case: [id number] ? Authorizing Provider: ??Solomon Frazier MD ?? Collected: ? 11/15/2023 12:55 PM ? Ordering Location: ? [facility] ?Received: ?11/15/2023 01:28 PM ? [facility] ? Pathologist: ? Jude Hubbard, ? MD ? Specimens: ?? A) - Urinary Bladder, DEEP MARGIN ? B) - Urinary Bladder, BLADDER TUMOR ? 11/18/2023 2:10 PM [facility] Final Diagnosis A. 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 Urinary Bladder, DEEP [...] [place]dwell(ASCP)CM 11/15/2023 2:21 PM 11/18/2023 2:10 PM [facility] Microscopic Description A. Sections show tangentially [...] evidence of invasive malignancy. 11/18/2023 2:10 PM [facility] MCRS Yes(A) N/A 11/18/2023 2:10 PM [facility] Performing Labs The technical component of this testing was completed at [facility]. Stain controls for all stains resulted within this report have been reviewed and show appropriate reactivity. 11/18/2023 2:10 PM [facility] Case Images 11/18/2023 2:10 PM [facility] Transurethral Resection (TUR) URINARY BLADDER STRUCTURE / Unknown 11/15/2023 12:55 PM CDT 11/15/2023 1:28 PM CDT Specimen from prostate obtained by transurethral resection (specimen) URINARY BLADDER STRUCTURE / Unknown 11/15/2023 1:01 PM CDT 11/15/2023 1:28 PM CDT Solomon SANTOS - KAL [facility] Organization Address City/State/ZIP Co de Phone Number [facility] [address], [address] [place] [address], [facility] [phone] documented in this encounter Visit Diagnoses Diagnosis Malignant neoplasm of lateral wall of urinary bladder (H)- Primary Malignant neoplasm of lateral wall of urinary bladder documented in this encounter Administered Medications Inactive [...] $Given 11/15/2023 2:38 PM CDT 4 mg documented in this encounter Active and Recently [...] Pre-procedure 1107 ($Given - Provi glen: Erika Stewart, MICHELLE FISHER) HYDROcodone-acetaminophen (NORCO) 5-325 MG per tablet 1 [...] PACU 1438 ($Given - Provi glen: Virginia Sauh RN) sterile water irrigation (bag) (CANCELED) PRN, [...] PACU documented in this encounter Care Teams Residential Care Facility Manager Relationship Specialty Start Date End Date Marcel Hammonds MD [facility] - [address] [address] PCP - General Family Medicine 03/25/22 Thang Conner MD [address] [place] [id number] Otolaryngology 03/22/22 documented as of this encounter
--- OUTSIDE RECORDS SUMMARY | 2023-12-05 05:14 | XMS_ITS | Clinical Summary ---
Author Organization [employer] [facility] [facility] Address [place], [place] [address] Care Team Providers Care Vessel Welder Name Role Phone Marcel Hammonds MD Primary Care Provider [phone] Allergies No known active allergies Medications No known medications Active Problems Problem Noted Date Diagnosed Date Tinnitus 10/13/2015 Sensorineural hearing loss, bilateral 10/13/2015 Displacement of lumbar inter vertebral disc without myelopathy 03/13/2007 Degeneration of lumbar or lumbosacral interverte bral disc 03/13/2007 VIRAL HEPATITIS C CHRONIC Overview (03/03/2014): treatment completed, virus cleared Resolved Problems Problem [...] Body Mass Index 23.55 05/24/2018 10:16 AM SOCIAL MEDIA DESIGNER Plan of Treatment Health Maintenance Due Date Last Done Comments Zoster (shingles) series for age 50+ (1 of 2) 2014 BMI (ht and wt on same day) for age 18+ 09/06/2016 09/07/2015 Depression screening for age 12+ 09/06/2016 09/07/2015 Fecal testing non-DNA (FIT,FOBT,iFOBT) for age 45-75 02/28/2017 02/29/2016, 01/16/2015 Lipids for age 45-75 09/06/2020 09/07/2015, 05/15/2012, 04/25/2006 COVID-19 vaccine series ( season) 2023 10/24/2021, 02/17/2021, 06/11/2020 Influenza for age 50-64 [...] BLOOD IFOBT STOOL Routine 02/29/2016 1:30 PM SOCIAL MEDIA DESIGNER Screening for colorectal cancer HCV RNA QUANT [...] OCCULT BLOOD IFOBT STOOL (02/29/2016 1:30 PM SOCIAL MEDIA DESIGNER) STOOL BLOOD ,IFOBT Negative Negative 03/02/2016 11:48 AM SOCIAL MEDIA DESIGNER [facility] Stool STOOL SPECIMEN / Unknown Non-Blood / Unknown 02/29/2016 1:30 PM SOCIAL MEDIA DESIGNER 03/01/2016 1:30 PM SOCIAL MEDIA DESIGNER Yakelin Shields MD LABORATORY [facility] [address] [place] [address], * HCV RNA QUANT (10/18/2015 9:06 AM CDT) HCV RNA RT-PCR HCV RNA not detected HCV RNA not detected IU/mL 10/20/2015 2:37 PM CDT [facility] Blood BLOOD SPECIMEN / Unknown Venipuncture / Unknown 10/18/2015 9:06 AM CDT 10/18/2015 9:06 AM CDT Narrative [facility] - 10/20/2015 2:37 PM CDT Method: ??Shen HCV Test Yakelin Shields MD SEND OUTS [facility] [address] [place] [address], [place] * LIPID PANEL W REFLEX MEASURED LDL (09/07/2015 8:39 AM CDT) CHOLESTEROL,TOTAL 165 100 - 199 mg/dL 09/07/2015 10:[address] [facility] TRIGLYCERIDES 51 <150 mg/dL 09/07/2015 10:[address] [facility] HDL CHOLESTEROL 45 >40 mg/dL 09/07/2015 10:[address] [facility] NON-HDL CHOLESTEROL 120 <145 mg/dl 09/07/2015 10:[address] [facility] CHOL/HDL RATIO 3.67 <4.50 09/07/2015 10:[address] [facility] LDL CHOLESTEROL 110 <=130 mg/dL 09/07/2015 10:[address] [facility] PATIENT STATUS FASTING 09/07/2015 10:[address] [facility] Blood specimen (specimen) BLOOD SPECIMEN / Unknown Venipuncture / Unknown 09/07/2015 8:39 AM CDT 09/07/2015 8:40 AM CDT Yakelin Shields MD CHEMISTRY [facility] [address] [place] [address], * ANTI HIV 1/2 (12/14/2013 2:48 PM CDT) HIV-1/HIV-2 ANTIBODY Non-Reacti ve Non-Reacti ve 12/14/2013 10:53 PM CDT [facility] Blood specimen (specimen) BLOOD SPECIMEN / Unknown Venipuncture / Unknown 12/14/2013 2:48 PM CDT 12/14/2013 2:48 PM CDT Narrative [facility] - 12/14/2013 10:53 PM CDT HIV-1 p24 and HIV-1/HIV-2 Ab not detected Yakelin Shields MD SEND OUTS [facility] [address] [place] [address], from Last 3 Months or Most Recently Relevant to Health Maintenance Care Teams Vessel Welder Relationship Specialty Start Date End Date Marcel Hammonds MD [address] [place] [id number] PCP - General Family Practice 05/23/21
== END 2023-11-29 07:29 | disposition home or self-care (01) ==
LOC: NFLDREF 12-05 05:11
PROVIDERS: PCP Family Medicine; Referring Provider Family Medicine; Visit Provider Family Medicine
DX: R73.03 Prediabetes (principal); R22.1 Localized swelling, mass and lump, neck; E78.5 Hyperlipidemia, unspecified; Z12.5 Encounter for screening for malignant neoplasm of prostate
CPT/HCPCS: 80061; 82947; G0103

== ENCOUNTER 2023-12-05 07:43 | Outpatient (CLI) | payer OTHER, SELFPAY ==
--- OUTSIDE RECORDS SUMMARY | 2023-12-05 07:45 | XMS_ITS | Clinical Summary ---
Author Organization [place] Address [address] [facility] [place] [address] Care Team Providers Care Core Drill Operator Helper Name Role Phone Thang Conner MD Unavailable [phone] Marcel Hammonds MD Primary Care Provider [phone] Allergies No known active allergies Medications Medication [...] Description 11/15/2023 11:07 AM CDT Anesthesia Event [facility] [address] [place] [phone] Virginia Louise MD Rakke, Michelle Mckeon MD 11/15/2023 10:50 AM CDT - 11/15/2023 11:55 AM CDT Surgery [facility] [address] [place] [phone] Solomon Frazier MD CYSTOSCOPY, TRANSURETHRAL RESECTION OF BLADDER TUMOR 11/15/2023 8:34 AM CDT - 11/15/2023 3:25 PM CDT Hospital Encounter [facility] PreOP/Phase II [address] [place] [address] Solomon Frazier MD Malignant neoplasm of [...] Case Report Surgical Pathology Report ? Case: [id number] ? Authorizing Provider: ??Solomon Frazier MD ?? Collected: ? 11/15/2023 12:55 PM ? Ordering Location: ? [facility] ?Received: ?11/15/2023 01:28 PM ? [facility] OR ? Pathologist: ? Jude Hubbard, ? MD ? Specimens: ?? A) - Urinary Bladder, DEEP MARGIN ? B) - Urinary Bladder, BLADDER TUMOR ? 11/18/2023 2:10 PM [facility] Final Diagnosis A. 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 Urinary Bladder, [...] Caldwell(ASCP)CM 11/15/2023 2:21 PM 11/18/2023 2:10 PM [facility] Microscopic Description A. Sections show [...] component of this testing was completed at [facility]. Stain controls for all [...] CDT 11/15/2023 1:28 PM CDT Solomon SANTOS [facility] Organization Address City/State/ZIP Co de Phone Number LABORATORY [facility] Acute Care Lab [address] 1[address] floor, [address] [place] [address], [facility] [phone] * ANE AIRWAY SUPRAGLOTTIC PERFORMABLE (11/15/2023 11:19 AM CDT) Narrative Erika Stewart APRN ACOUSTIC SENSOR OPERATOR - 11/15/2023 11:19 AM CDT Erika Stewart APRN CRNA ? 11/15/2023 11:20 AM Airway ? Patient location during procedure: OR Staff - ? Anesthesiologist: ??Michelle Mejia MD ? ACOUSTIC SENSOR OPERATOR: Erika Stewart APRN CRNA ? Performed By: ACOUSTIC SENSOR OPERATOR Consent for Airway ? Urgency: elective Indications [...] Dentition: Intact and Unchanged Michelle Mejia MD [place] ANESTHESIA from Last 3 Months Care Teams Core Drill Operator Helper Relationship Specialty Start Date End Date Marcel Hammonds MD [facility] [address] [place] [address] PCP - General Family Medicine 03/25/22 Thang Conner MD [address] [place] [address] Otolaryngology 03/22/22
--- OUTSIDE RECORDS SUMMARY | 2023-12-05 07:45 | XMS_ITS | Referral Summary ---
Author Organization [place] Address [address] [facility] [place] [address] Care Team Providers Care Commissary Manager Name Role Phone Thang Conner MD Unavailable [phone] Marcel Hammonds MD Primary Care Provider [phone] Encounters Date Type Department Care Team Description 11/15/2023 10:50 AM CDT - 11/15/2023 11:55 AM CDT Surgery [facility] PeriOP Services [address] [place] [phone] Solomon Frazier MD CYSTOSCOPY, TRANSURETHRAL RESECTION OF BLADDER TUMOR 11/15/2023 11:07 AM CDT Anesthesia Event [facility] [address] [place] [phone] Virginia Louise MD Rakke, Sylvia C, MD 11/15/2023 8:34 AM CDT - 11/15/2023 3:25 PM CDT Hospital Encounter [facility] PreOP/Phase II [address] [place] [phone] Solomon Frazier MD Malignant neoplasm of lateral [...] Case Report Surgical Pathology Report ? Case: [id number] ? Authorizing Provider: ??Solomon Frazier MD ?? Collected: ? 11/15/2023 12:55 PM ? Ordering Location: ? [facility] ?Received: ?11/15/2023 01:28 PM ? [facility] Main OR ? Pathologist: ? Jude Hubbard, ? MD ? Specimens: ?? A) - Urinary Bladder, DEEP MARGIN ? B) - Urinary Bladder, BLADDER TUMOR ? 11/18/2023 2:10 PM [facility] Final Diagnosis A. 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 Urinary Bladder, [...] component of this testing was completed at [facility]. Stain controls for all [...] CDT Solomon SANTOS - [facility] Acute Care Lab [address] 1[address] floor, [address] [place] [address], [facility] [phone] * ANE AIRWAY SUPRAGLOTTIC PERFORMABLE (11/15/2023 11:19 AM CDT) Narrative Erika Stewart APRN BOW MAKER CUSTOM - 11/15/2023 11:19 AM CDT Erika Stewart APRN BOW MAKER CUSTOM ? 11/15/2023 11:20 AM Airway ? Patient location during procedure: OR Staff - ? Anesthesiologist: ??Michelle Mejia MD ? BOW MAKER CUSTOM: Erika Stewart APRN BOW MAKER CUSTOM ? Performed By: BOW MAKER CUSTOM Consent for Airway ? Urgency: elective Indications [...] Dentition: Intact and Unchanged Michelle Mejia MD [place] ANESTHESIA from Last 3 Months Care Teams Commissary Manager Relationship Specialty Start Date End Date Marcel Hammonds MD [facility] [address] [place] [address] PCP - General Family Medicine 03/25/22 Thang Conner MD [address] [place] [address] Otolaryngology 03/22/22
--- OUTSIDE RECORDS SUMMARY | 2023-12-05 07:46 | XMS_ITS | Encounter Summary ---
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] Procedures CT CYSTOSCOPY W TX MINOR LESION <0.[address] CYSTOURETHROSCOPY,FULGUR .5-2CM LE* CT CYSTOURETHROSCOPY,FULGUR 2-5CM LESN CT CYSTOURETHROSCOPY,FULGUR >5CM LESN CYSTOSCOPY, TRANSURETHRAL RESECTION OF BLADDER TUMOR Sh Periop Services [address] [place] [address] Referral ID Status Reason Start Date Expiration Date Visits Re quested Visits Authorized [id number] 1 1 Encounter Details Date Type Department Care Team (Latest Contact Info) Description 11/15/2023 8:34 AM CDT - 11/15/2023 3:25 PM CDT Hospital Encounter [facility] PreOP/Phase II [address] [...] about your procedure, Call Dr. Frazier at [phone] documented in this encounter Medications at Time [...] satellite lesions. Modifier 22 ANESTHESIA General STAFF Electrical Tester Battery: Jose Daniel Varner, RN Relief Electrical Tester Battery: Sanya Cheatham RN Relief Scrub: Alta Victor [...] Case Report Surgical Pathology Report ? Case: [id number] ? Authorizing Provider: ??Solomon Frazier MD ?? Collected: ? 11/15/2023 12:55 PM ? [facility] ?Received: ?11/15/2023 01:28 PM ? [facility] Main OR ? Pathologist: ? Jude Hubbard, ? MD ? Specimens: ?? A) - Urinary Bladder, DEEP MARGIN ? B) - Urinary Bladder, BLADDER TUMOR ? 11/18/2023 2:10 PM [facility] Final Diagnosis A. 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 Urinary Bladder, DEEP [...] Caldwell(ASCP)CM 11/15/2023 2:21 PM 11/18/2023 2:10 PM [facility] Microscopic Description A. Sections show tangentially [...] evidence of invasive malignancy. 11/18/2023 2:10 PM [facility] MCRS Yes(A) N/A 11/18/2023 2:10 PM [facility] Performing Labs The technical component of this testing was completed at [facility]. Stain controls for all stains resulted within this report have been reviewed and show appropriate reactivity. 11/18/2023 2:10 PM [facility] Case Images 11/18/2023 2:10 PM [facility] Transurethral Resection (TUR) URINARY BLADDER STRUCTURE / Unknown 11/15/2023 12:55 PM CDT 11/15/2023 1:28 PM CDT Specimen from prostate obtained by transurethral resection (specimen) URINARY BLADDER STRUCTURE / Unknown 11/15/2023 1:01 PM CDT 11/15/2023 1:28 PM CDT Solomon SATNOS - KAL [facility] Organization Address City/State/ZIP Co de Phone Number [facility] Acute Care Lab [address] 1[address] floor, [address] [place] [address], [facility] [phone] documented in this encounter Visit Diagnoses Diagnosis [...] PACU documented in this encounter Care Teams Battery Tester Field Relationship Specialty Start Date End Date Marcel Hammonds MD [facility] - [address] [address] PCP - General Family Medicine 03/25/22 Thang Conner MD [address] [place] [id number] Otolaryngology 03/22/22 documented as of this encounter
--- OUTSIDE RECORDS SUMMARY | 2023-12-05 07:46 | XMS_ITS | Encounter Summary ---
Author Organization [place] Address [address] [place] [address] Care Team Providers Care Preservationist Name Role Phone Thang Conner MD Unavailable [phone] Thang Conner MD Unavailable [phone] Marcel Hammonds MD Primary Care Provider [phone] Encounter Details Date Type Department Care Team (Late st Contact Info) Description 05/05/2022 [facility] Medical Advice [facility] [address] [address] Thang Conner MD [address] [place] [address] Social History Tobacco Use Types Packs/Day [...] Coronavirus/COVID-19? No / Unsure 05/04/2022 9:37 AM AIRPORT OPERATIONS SUPERVISOR documented as of this encounter Plan of Treatment Not on file documented as of this encounter Visit Diagnoses Not on filedocumented in this encounter Care Teams Preservationist Relationship Specialty Start Date End Date Marcel Hammonds MD [address] [place] [address] PCP - General Family Medicine 03/25/22 Thang Conner MD [address] [place] [address] Otolaryngology 03/22/22 Thang Conner MD [address] [place] [address] Assigned Surgical Provider 05/12/22 04/05/23 documented as of this encounter
--- OUTSIDE RECORDS SUMMARY | 2023-12-05 07:46 | XMS_ITS | Encounter Summary ---
Author Organization [place] Address [address] [place] [address] Care Team Providers Care Multicut Line Operator Name Role Phone No Ref-Primary, Physician Primary Care Provider Thang Conner MD Unavailable [phone] Tahng Conner MD Unavailable [phone] Marcel Hammonds MD Primary Care Provider [phone] Marcel Hammonds MD Primary Care Provider [phone] Encounter Details Date Type Department Care Team (Late st Contact Info) Description 02/26/2019 External Order Results [facility] [address] [place] [address] Social History Tobacco Use Types Packs/Day Years Used Date Smoking Tobacco: Never Assessed Sex and Gender Information Value Date Recorded Sex Assigned at Not on file Gender Identity Not on file Sexual Orientation Not on file documented as of this encounter Plan of Treatment Not on file documented as of this encounter Visit Diagnoses Not on filedocumented in this encounter Care Teams Multicut Line Operator Relationship Specialty Start Date End Date No Ref-Primary, Physician PCP - General 03/22/22 03/24/22 Marcel Hammonds MD [address] [address] PCP - General Family Medicine 05/23/21 03/21/22 Marcel Hammonds MD [facility] [address] [place] [address] PCP - General Family Medicine 03/25/22 Thang Conner MD [address] [place] [phone] Otolaryngology 03/22/22 Thang Conner MD [address] [place] [id number] Assigned Surgical Provider 05/12/22 04/05/23 documented as of this encounter
--- OUTSIDE RECORDS SUMMARY | 2023-12-05 07:46 | XMS_ITS | Encounter Summary ---
Author Organization [place] Address [address] 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] Procedures [place] CYSTOSCOPY W TX MINOR LESION <0.5 CM [place] CYSTOURETHROSCOPY,FULGUR .5-2CM LE* [place] CYSTOURETHROSCOPY,FULGUR 2-5CM LESN [place] CYSTOURETHROSCOPY,FULGUR >5CM LESN CYSTOSCOPY, TRANSURETHRAL RESECTION OF BLADDER TUMOR Periop Services [address] [place] [address] Referral ID Status Reason Start Date Expiration Date Visits Re quested Visits Authorized [id number] 1 1 Encounter Details Date Type Department Care Team (Late st Contact Info) Description 11/15/2023 11:07 AM CDT Anesthesia Event [facility] PeriOP Services [address] [place] [address] Virginia Louise [place] [facility] [place] [place] [address] [place], [place] [address] Michelle Mejia MD [facility] [address] [place] [address] Anesthesia Record Procedure Summary Procedure Name Responsible [...] recorded are pre- induction. Erika Stewart APRN CORPORATE SAFETY MANAGER 1109 An Induction 1109 MD Present 1113 [...] 1 11/15/23 1120 by Erika Stewart APRN CORPORATE SAFETY MANAGER 11/15/23 1310 by Erika Stewart APRN CORPORATE SAFETY MANAGER Urethral Catheter 11/15/23; 1303; Surgical procedure; 22 [...] OR Staff - Anesthesiologist: Michelle Mejia MD CORPORATE SAFETY MANAGER: Erika Stewart APRN CORPORATE SAFETY MANAGER Performed By: CORPORATE SAFETY MANAGER Consent for Airway Urgency: elective Indications and [...] Care Transfer Note - Erika Stewart APRN CORPORATE SAFETY MANAGER - 11/15/2023 1:21 PM CDT Patient: Derek [...] report on patient's clinical status given to REGISTERED VETERINARY TECHNICIAN, RN questionsanswered. Handoff Report: Identifed the Patient, [...] - ? Anesthesiologist: ??Michelle Mejia MD ? CORPORATE SAFETY MANAGER: Erika Stewart APRN CRNA ? Performed By: CORPORATE SAFETY MANAGER Consent for Airway ? Urgency: elective [...] Dentition: Intact and Unchanged Michelle Mejia MD [place] ANESTHESIA documented in this encounter Visit Diagnoses [...] mg documented in this encounter Care Teams Type Disk Quality Control Supervisor Relationship Specialty Start Date End Date Marcel Hammonds MD [facility] [address] [place] [address] PCP - General Family Medicine 03/25/22 Thang Conner MD [address] [place] [address] Otolaryngology 03/22/22 documented as of this encounter
--- OUTSIDE RECORDS SUMMARY | 2023-12-05 07:46 | XMS_ITS | Encounter Summary ---
Author Organization [place] Address [address] [facility] [place] [address] Care Team Providers Care Refiner Operator Name Role Phone Thang Conner MD Unavailable [phone] Marcel Hammonds MD Primary Care Provider [phone] Reason for Visit * Auth/Cert Specialty Diagnoses [...] [address] [place] [address] Referral ID Status Reason Start Date Expiration Date Visits Re quested Visits Authorized [id number] 1 1 Encounter Details Date Type Department Care Team (Late st Contact Info) Description 11/15/2023 10:50 AM CDT - 11/15/2023 11:[address] [facility] PeriOP Services [address] [...] about your procedure, Call Dr. Frazier at [phone] documented in this encounter Medications at Time [...] No questions or concerns. Pt transported to [facility] via w/c. * Virginia Sahu RN - 11/15/2023 2:47 PM CDT Pt dressed, up in recliner and transported to [facility] 2. documented in this encounter Procedure Notes [...] satellite lesions. Modifier 22 ANESTHESIA General STAFF Implementation Lead: Jose Daniel Varner RN Relief Implementation Lead: Sanya Cheatham RN Relief Scrub: Alta Victor [...] Case Report Surgical Pathology Report ? Case: [id number] ? Authorizing Provider: ??Solomon Frazier MD ?? Collected: ? 11/15/2023 12:55 PM ? Ordering Location: ? [facility] ?Received: ?11/15/2023 01:28 PM ? [facility] Main OR ? Pathologist: ? 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 Urinary Bladder, [...] 2:21 PM 11/18/2023 2:10 PM [facility] Microscopic Description A. Sections show [...] invasive malignancy. 11/18/2023 2:10 PM [facility] MCRS Yes(A) N/A 11/18/2023 2:10 PM [facility] Performing Labs The technical component of this testing was completed at [facility]. Stain controls for [...] CDT Solomon SANTOS - [facility] Acute Care Lab [address] 1[address] floor, [address] [place] [address], [facility] [phone] documented in this encounter Visit Diagnoses Diagnosis [...] PACU documented in this encounter Care Teams Refiner Operator Relationship Specialty Start Date End Date Marcel Hammonds MD [facility] [address] [place] [address] PCP - General Family Medicine 03/25/22 Thang Conner MD [address] [place] [address] Otolaryngology 03/22/22 documented as of this encounter
--- OUTSIDE RECORDS SUMMARY | 2023-12-05 07:46 | XMS_ITS | Clinical Summary ---
Author Organization [facility] [facility] Address [place], [place] [address] Care Team Providers Care Lead Refiner Name Role Phone Marcel Hammonds MD Primary Care Provider [phone] Allergies No known active allergies Medications No [...] Body Mass Index 23.55 05/24/2018 10:16 AM NARROW GAUGE OPERATOR Plan of Treatment Health Maintenance Due Date [...] BLOOD IFOBT STOOL Routine 02/29/2016 1:30 PM NARROW GAUGE OPERATOR Screening for colorectal cancer HCV RNA QUANT [...] OCCULT BLOOD IFOBT STOOL (02/29/2016 1:30 PM NARROW GAUGE OPERATOR) STOOL BLOOD ,IFOBT Negative Negative 03/02/2016 11:48 AM NARROW GAUGE OPERATOR [facility] Stool STOOL SPECIMEN / Unknown Non-Blood / Unknown 02/29/2016 1:30 PM NARROW GAUGE OPERATOR 03/01/2016 1:30 PM NARROW GAUGE OPERATOR Yakelin Shields MD LABORATORY [facility] [address] [place] [address], * HCV RNA QUANT (10/18/2015 9:06 AM CDT) HCV RNA RT-PCR HCV RNA not detected HCV RNA not detected IU/mL 10/20/2015 2:37 PM CDT [facility] Blood BLOOD SPECIMEN / Unknown Venipuncture / Unknown 10/18/2015 9:06 AM CDT 10/18/2015 9:06 AM CDT Narrative [facility] - 10/20/2015 2:37 PM CDT Method: ??Shen HCV Test Yakelin Shields MD SEND OUTS [facility] [address] [place] [address], [place] * LIPID PANEL W REFLEX MEASURED [...] MD CHEMISTRY [facility] [address] [place] [address], * ANTI HIV 1/2 (12/14/2013 2:48 PM CDT) HIV-1/HIV-2 ANTIBODY Non-Reacti ve Non-Reacti ve 12/14/2013 10:53 PM CDT [facility] TRAL LABORATORY Blood specimen (specimen) BLOOD SPECIMEN / Unknown Venipuncture / Unknown 12/14/2013 2:48 PM CDT 12/14/2013 2:48 PM CDT Narrative [facility] - 12/14/2013 10:53 PM CDT HIV-1 p24 and HIV-1/HIV-2 Ab not detected Yakelin Shields MD SEND OUTS [facility] [address] [place] [address], from Last 3 Months or Most Recently Relevant to Health Maintenance Care Teams Lead Refiner Relationship Specialty Start Date End Date Marcel Hammonds MD [address] [place] [id number] PCP - General Family Practice 05/23/21
--- NOTE | 2023-12-05 08:00 | CRLHL7_ITS ---
For Patients: As a result of the Century Cures Act, medical imaging exams and procedure reports are released immediately into your electronic medical record. You may view this report before your referring provider. If you have questions, please contact your health care provider. INDICATION: Aneurysm of the ascending thoracic aorta. TECHNIQUE: Noncontrast chest CT. COMPARISON: Contrast-enhanced chest CT December 01, 2021. FINDINGS: 4.1 x 4.0 cm ascending thoracic aortic aneurysm previously 4.0 x 3.8 very slight increase cm. This is minimally larger. No mediastinal hematoma or lymphadenopathy. Stable dense benign-appearing calcification along the anterior right hilum extending along the minor fissure. This is unchanged in retrospect. Minor linear fibrosis or atelectasis lingular left upper lobe. 2 mm subpleural pulmonary nodule lateral right lower lobe of the lung image 65 series 3 in retrospect seen on image 60 series 3 of the prior study little changed. No pleural or pericardial effusions. Normal adrenal glands. No splenomegaly or hydronephrosis. Stable old posterior left rib fracture deformities. IMPRESSION: 1. Very slight increase in the size of the ascending thoracic aortic aneurysm, 4.1 x 4.0 cm, previously 4.0 x 3.8 cm. 2. Stable benign calcifications along the anterior margin of the right hilum. 3. Stable punctate nodule right lower lobe laterally. Please note that all CT scans at this facility use dose modulation, iterative reconstruction, and/or weight-based dosing when appropriate to reduce radiation dose to as low as reasonably achievable. Dictated by Tom Huber MD @ 12/05/2023 11:39:01 AM (Electronically Signed)
== END 2023-12-05 07:44 | disposition home or self-care (01) ==
LOC: CT 07:44
PROVIDERS: PCP Family Medicine; Visit Provider Family Medicine
DX: I71.21 Aneurysm of the ascending aorta, without rupture (principal); R91.8 Other nonspecific abnormal finding of lung field
CPT/HCPCS: 71250

== ENCOUNTER 2024-03-13 07:30 | Outpatient (RCR) | payer OTHER, SELFPAY | END 2024-07-11 23:59 | disposition home or self-care (01) | PROVIDERS: PCP Family Medicine; Visit Provider Family Medicine | DX: M54.2 Cervicalgia (principal); M62.838 Other muscle spasm; Z51.89 Encounter for other specified aftercare | CPT/HCPCS: 97110; 97140; 97162 ==

== ENCOUNTER 2024-09-08 07:03 | Outpatient (CLI) | payer OTHER, SELFPAY ==
--- NOTE | 2024-09-08 07:15 | CRLHL7_ITS ---
For Patients: As a result of the Century Cures Act, medical imaging exams and procedure reports are released immediately into your electronic medical record. You may view this report before your referring provider. If you have questions, please contact your health care provider. INDICATION: Cervical. TECHNIQUE: Sagittal T1 sagittal and axial T2 and sagittal STIR images were obtained. Findings : Multilevel spondylosis superimposed on a congenitally narrowed cervical spinal canal. Sagittal alignment within normal limits. No stenosis foramen magnum level C1 or C2 levels. At C2-3 minor annular bulge no stenosis of the spinal canal and neural foramen adequately patent mild left-sided facet arthropathy. At C3-4 mild disc space narrowing. Mild broad posterior annular bulge superimposed on congenitally narrowed spinal canal mild central stenosis without cord impingement moderate right-sided and [id number] left-sided foraminal narrowing. At C4-5 shallow central disc bulge results in mild central stenosis. Moderate bilateral facet arthropathy mild right-sided foraminal narrowing. At C5-6 mild degenerative disc space narrowing. Broad-based left paracentral posterior disc protrusion superimposed on congenitally narrowed spinal canal. Moderate central stenosis with mild compressive deformity of the spinal cord. There is bilateral foraminal narrowing with probable impingement of exiting C6 nerve roots. At C6-7 mild circumferential disc bulging and marginal spurring superimposed on congenitally narrowed spinal canal mild central stenosis. Moderate left and mild right neural foraminal narrowing. At C7-T1 no disc herniation central or lateral stenosis. IMPRESSION: 1. Multilevel cervical spondylosis is superimposed on a congenitally narrowed spinal canal. 2. At C5-6 left paracentral posterior disc protrusion osteophyte. Moderate central spinal canal stenosis and mild to moderate compressive deformity of the cord. Bilateral foraminal stenosis. 3. Mild to moderate central stenosis C3-4, C4-5 and C6-7 with multilevel foraminal narrowing. Dictated by Tom Shi MD @ 09/08/2024 10:57:26 AM (Electronically Signed)
== END 2024-09-08 07:04 | disposition home or self-care (01) ==
LOC: MRI 07:03
PROVIDERS: PCP Family Medicine; Visit Provider Family Medicine
DX: M54.2 Cervicalgia (principal); M47.892 Other spondylosis, cervical region; M50.222 Other cervical disc displacement at C5-C6 level; M48.02 Spinal stenosis, cervical region
CPT/HCPCS: 72141

== ENCOUNTER 2024-12-08 08:06 | Outpatient (CLI) | payer OTHER, SELFPAY | END 2024-12-08 08:07 | disposition home or self-care (01) | LOC: NFLDREF 12-13 04:07 | PROVIDERS: PCP Family Medicine; Referring Provider Family Medicine; Visit Provider Family Medicine | DX: E78.5 Hyperlipidemia, unspecified (principal); Z12.5 Encounter for screening for malignant neoplasm of prostate | CPT/HCPCS: 80053; 80061; G0103 ==

== ENCOUNTER 2025-03-02 07:45 | Outpatient (CLI) | payer OTHER, SELFPAY ==
--- NOTE | 2025-03-02 08:00 | CRLHL7_ITS ---
For Patients: As a result of the Century Cures Act, medical imaging exams and procedure reports are released immediately into your electronic medical record. You may view this report before your referring provider. If you have questions, please contact your health care provider. INDICATION: ACUTE PHARYNGITIS. PT HAS SORE SPOT ON RT SIDE OF THROAT FEELS LIKE FOOD GETS STUCK IN THAT AREA. THIS AREA WAS CAUTERIZED FOR A NASOPHARYNGEAL WEB COMPARISON: none TECHNIQUE: A CT volumetric acquisition was performed of the neck during intravenous infusion of 98CC ISOVUE 370 nonionic intravenous contrast. Please note that all CT scans at this facility use dose modulation, iterative reconstruction, and/or weight-based dosing when appropriate to reduce radiation dose to as low as reasonably achievable. FINDINGS: The CT images demonstrate normal aeration of the mastoid air cells and middle ear cavities. Mucous retention cyst in the left maxillary sinus measures 1.5 cm. Tiny mucous retention cyst right maxillary sinus. Mild mucosal thickening in both ethmoid sinuses. The nasopharynx appears normal. The parotid and submandibular glands are of normal size and have uniform enhancement. The oropharynx appears normal. The valleculae, epiglottis, aryepiglottic folds and piriform sinuses appear normal. There is a normal appearance of the larynx and subglottic trachea. The thyroid gland is of normal size and has uniform density. There is no evidence of lymphadenopathy within the anterior and posterior cervical triangles or within the supraclavicular region. Lung apices are clear. Degenerative disc disease C5-6 and C6-7. No fracture. Visualized brain parenchyma appears normal. Unremarkable orbits. IMPRESSION: No suspicious findings. Mild sinus disease. Please note that all CT scans at this facility use dose modulation, iterative reconstruction, and/or weight-based dosing when appropriate to reduce radiation dose to as low as reasonably achievable. Dictated by Sean Louie MD @ 03/02/2025 11:25:48 AM (Electronically Signed)
[2025-03-02 08:11] LABS: Creatinine* 0.9 mg/dL (0.5-1.5); Estimated Glomerular Filt Rate 98 ml/min
== END 2025-03-02 07:46 | disposition home or self-care (01) ==
LOC: CT 07:46
PROVIDERS: PCP Family Medicine; Visit Provider Physician Assistant
DX: J02.9 Acute pharyngitis, unspecified (principal); J39.2 Other diseases of pharynx
CPT/HCPCS: 36415; 70491; 82565; Q9967